=== PATIENT | male | born 1970 | race Caucasian/White ===

== ENCOUNTER → 2017-08-04 | Outpatient (CLI) | payer OTHER ==
[2017-07-23 11:00] VITALS: BP 129/76
[~2017-08-04] MED LIST: ALPR0.254 PO; AMOX1TAB61 PO; ATOR40TA59 PO; BUDE10.2 IH; CETI10TA22 PO; DOXY100T PO; ENOX40DI SQ; ENOX60DI3 SQ; FLUT9.9S NS; FURO-68 PO; HYDR-2762 PO; LISI10TA2 PO; MELA3TAB2 PO; METF500T9 PO; METO200T5 PO; MONT10TA9 PO; OLOP2.5D EACHEYE; PROAIR HFA8.5 GM INH; SENN-22 PO; TIZA4TAB PO
== END | disposition home or self-care (01) ==
LOC: PMGWOUND 11:22
PROVIDERS: ATTEND Emergency Medicine Undersea and Hyperbaric Medicine
DX: T81.31XA Disruption of external operation (surgical) wound, not elsewhere classified, initial encounter (principal); E78.00 Pure hypercholesterolemia, unspecified; E11.22 Type 2 diabetes mellitus with diabetic chronic kidney disease; I12.9 Hypertensive chronic kidney disease with stage 1 through stage 4 chronic kidney disease, or unspecified chronic kidney disease; N18.2 Chronic kidney disease, stage 2 (mild); E66.01 Morbid (severe) obesity due to excess calories; Z68.45 Body mass index [BMI] 70 or greater, adult; Z72.89 Other problems related to lifestyle; Y83.8 Other surgical procedures as the cause of abnormal reaction of the patient, or of later complication, without mention of misadventure at the time of the procedure
CPT/HCPCS: 99215

== ENCOUNTER → 2017-08-11 | Outpatient (CLI) | payer OTHER ==
[2017-07-23 11:00] VITALS: BP 129/76
== END | disposition home or self-care (01) ==
LOC: PMGWOUND 13:26
PROVIDERS: ATTEND Emergency Medicine Undersea and Hyperbaric Medicine
DX: T81.31XA Disruption of external operation (surgical) wound, not elsewhere classified, initial encounter (principal); E78.00 Pure hypercholesterolemia, unspecified; E66.01 Morbid (severe) obesity due to excess calories; Z72.89 Other problems related to lifestyle; Z68.45 Body mass index [BMI] 70 or greater, adult; E11.22 Type 2 diabetes mellitus with diabetic chronic kidney disease; I12.9 Hypertensive chronic kidney disease with stage 1 through stage 4 chronic kidney disease, or unspecified chronic kidney disease; N18.2 Chronic kidney disease, stage 2 (mild); Y83.8 Other surgical procedures as the cause of abnormal reaction of the patient, or of later complication, without mention of misadventure at the time of the procedure
CPT/HCPCS: 99214

== ENCOUNTER → 2017-08-18 | Outpatient (CLI) | payer OTHER ==
[2017-07-23 11:00] VITALS: BP 129/76
== END | disposition home or self-care (01) ==
LOC: PMGWOUND 13:14
PROVIDERS: ATTEND Emergency Medicine Undersea and Hyperbaric Medicine
DX: T81.31XD Disruption of external operation (surgical) wound, not elsewhere classified, subsequent encounter (principal); E78.00 Pure hypercholesterolemia, unspecified; E66.01 Morbid (severe) obesity due to excess calories; E11.22 Type 2 diabetes mellitus with diabetic chronic kidney disease; I12.9 Hypertensive chronic kidney disease with stage 1 through stage 4 chronic kidney disease, or unspecified chronic kidney disease; N18.2 Chronic kidney disease, stage 2 (mild); Z72.89 Other problems related to lifestyle; Y83.8 Other surgical procedures as the cause of abnormal reaction of the patient, or of later complication, without mention of misadventure at the time of the procedure
CPT/HCPCS: 99214

== ENCOUNTER → 2017-09-08 | Outpatient (CLI) | payer OTHER ==
[2017-07-23 11:00] VITALS: BP 129/76
== END | disposition home or self-care (01) ==
LOC: PMGWOUND 11:01
PROVIDERS: ATTEND Emergency Medicine Undersea and Hyperbaric Medicine
DX: T81.31XD Disruption of external operation (surgical) wound, not elsewhere classified, subsequent encounter (principal); E78.00 Pure hypercholesterolemia, unspecified; E66.01 Morbid (severe) obesity due to excess calories; Z68.45 Body mass index [BMI] 70 or greater, adult; E11.22 Type 2 diabetes mellitus with diabetic chronic kidney disease; I12.9 Hypertensive chronic kidney disease with stage 1 through stage 4 chronic kidney disease, or unspecified chronic kidney disease; N18.2 Chronic kidney disease, stage 2 (mild); E78.5 Hyperlipidemia, unspecified; Z72.89 Other problems related to lifestyle; Y83.8 Other surgical procedures as the cause of abnormal reaction of the patient, or of later complication, without mention of misadventure at the time of the procedure
CPT/HCPCS: 99214

== ENCOUNTER → 2017-09-22 | Outpatient (CLI) | payer OTHER ==
[2017-07-23 11:00] VITALS: BP 129/76
== END | disposition home or self-care (01) ==
LOC: PMGWOUND 11:00
PROVIDERS: ATTEND Emergency Medicine Undersea and Hyperbaric Medicine
DX: S81.011D Laceration without foreign body, right knee, subsequent encounter (principal); E78.5 Hyperlipidemia, unspecified; E66.01 Morbid (severe) obesity due to excess calories; I12.9 Hypertensive chronic kidney disease with stage 1 through stage 4 chronic kidney disease, or unspecified chronic kidney disease; E11.22 Type 2 diabetes mellitus with diabetic chronic kidney disease; N18.2 Chronic kidney disease, stage 2 (mild); Z72.89 Other problems related to lifestyle; Z68.45 Body mass index [BMI] 70 or greater, adult; X58.XXXD Exposure to other specified factors, subsequent encounter
CPT/HCPCS: 99213; 99214

== ENCOUNTER → 2017-10-06 | Outpatient (CLI) | payer OTHER ==
[2017-07-23 11:00] VITALS: BP 129/76
== END | disposition home or self-care (01) ==
LOC: PMGWOUND 10:59
PROVIDERS: ATTEND Emergency Medicine Undersea and Hyperbaric Medicine
DX: S81.011D Laceration without foreign body, right knee, subsequent encounter (principal); E66.01 Morbid (severe) obesity due to excess calories; E78.00 Pure hypercholesterolemia, unspecified; E11.22 Type 2 diabetes mellitus with diabetic chronic kidney disease; I12.9 Hypertensive chronic kidney disease with stage 1 through stage 4 chronic kidney disease, or unspecified chronic kidney disease; N18.2 Chronic kidney disease, stage 2 (mild); Z68.45 Body mass index [BMI] 70 or greater, adult; Z72.89 Other problems related to lifestyle; W19.XXXD Unspecified fall, subsequent encounter
CPT/HCPCS: 99214

== ENCOUNTER → 2017-10-13 | Outpatient (CLI) | payer OTHER ==
[2017-07-23 11:00] VITALS: BP 129/76
== END | disposition home or self-care (01) ==
LOC: PMGWOUND 10:58
PROVIDERS: ATTEND Emergency Medicine Undersea and Hyperbaric Medicine
DX: T81.31XD Disruption of external operation (surgical) wound, not elsewhere classified, subsequent encounter (principal); E11.622 Type 2 diabetes mellitus with other skin ulcer; L97.811 Non-pressure chronic ulcer of other part of right lower leg limited to breakdown of skin; E66.01 Morbid (severe) obesity due to excess calories; E78.00 Pure hypercholesterolemia, unspecified; E11.22 Type 2 diabetes mellitus with diabetic chronic kidney disease; I12.9 Hypertensive chronic kidney disease with stage 1 through stage 4 chronic kidney disease, or unspecified chronic kidney disease; N18.2 Chronic kidney disease, stage 2 (mild); Z68.45 Body mass index [BMI] 70 or greater, adult; Z72.89 Other problems related to lifestyle; Y83.8 Other surgical procedures as the cause of abnormal reaction of the patient, or of later complication, without mention of misadventure at the time of the procedure
CPT/HCPCS: 97605

== ENCOUNTER → 2017-10-21 | Outpatient (CLI) | payer OTHER ==
[2017-07-23 11:00] VITALS: BP 129/76
== END | disposition home or self-care (01) ==
LOC: PMGWOUND 11:15
PROVIDERS: ATTEND Emergency Medicine Undersea and Hyperbaric Medicine
DX: T81.31XD Disruption of external operation (surgical) wound, not elsewhere classified, subsequent encounter (principal); E11.622 Type 2 diabetes mellitus with other skin ulcer; L97.811 Non-pressure chronic ulcer of other part of right lower leg limited to breakdown of skin; E11.22 Type 2 diabetes mellitus with diabetic chronic kidney disease; I12.9 Hypertensive chronic kidney disease with stage 1 through stage 4 chronic kidney disease, or unspecified chronic kidney disease; N18.2 Chronic kidney disease, stage 2 (mild); Z68.45 Body mass index [BMI] 70 or greater, adult; E78.00 Pure hypercholesterolemia, unspecified; E66.01 Morbid (severe) obesity due to excess calories; G47.30 Sleep apnea, unspecified; Z72.89 Other problems related to lifestyle; Y83.8 Other surgical procedures as the cause of abnormal reaction of the patient, or of later complication, without mention of misadventure at the time of the procedure
CPT/HCPCS: 97605

== ENCOUNTER → 2017-10-28 | Outpatient (CLI) | payer OTHER | END | disposition home or self-care (01) | LOC: PMGWOUND 12:40 | DX: T81.31XD Disruption of external operation (surgical) wound, not elsewhere classified, subsequent encounter (principal); E11.622 Type 2 diabetes mellitus with other skin ulcer; L97.811 Non-pressure chronic ulcer of other part of right lower leg limited to breakdown of skin; E78.00 Pure hypercholesterolemia, unspecified; E66.01 Morbid (severe) obesity due to excess calories; Z68.45 Body mass index [BMI] 70 or greater, adult; Z72.89 Other problems related to lifestyle; E11.22 Type 2 diabetes mellitus with diabetic chronic kidney disease; I12.9 Hypertensive chronic kidney disease with stage 1 through stage 4 chronic kidney disease, or unspecified chronic kidney disease; N18.2 Chronic kidney disease, stage 2 (mild); E78.5 Hyperlipidemia, unspecified; Y83.8 Other surgical procedures as the cause of abnormal reaction of the patient, or of later complication, without mention of misadventure at the time of the procedure | CPT/HCPCS: 97605 ==

== ENCOUNTER → 2017-11-04 | Outpatient (CLI) | payer OTHER | END | disposition home or self-care (01) | LOC: PMGWOUND 12:34 | DX: T81.31XD Disruption of external operation (surgical) wound, not elsewhere classified, subsequent encounter (principal); E11.622 Type 2 diabetes mellitus with other skin ulcer; L97.811 Non-pressure chronic ulcer of other part of right lower leg limited to breakdown of skin; E78.00 Pure hypercholesterolemia, unspecified; E66.01 Morbid (severe) obesity due to excess calories; E11.22 Type 2 diabetes mellitus with diabetic chronic kidney disease; I12.9 Hypertensive chronic kidney disease with stage 1 through stage 4 chronic kidney disease, or unspecified chronic kidney disease; N18.2 Chronic kidney disease, stage 2 (mild); E78.5 Hyperlipidemia, unspecified; G47.30 Sleep apnea, unspecified; Z68.45 Body mass index [BMI] 70 or greater, adult; Z72.89 Other problems related to lifestyle; Y83.8 Other surgical procedures as the cause of abnormal reaction of the patient, or of later complication, without mention of misadventure at the time of the procedure | CPT/HCPCS: 87205; 99214 ==

== ENCOUNTER → 2017-11-07 | Outpatient (CLI) | payer OTHER | END | disposition home or self-care (01) | LOC: PMGWOUND 08:33 | DX: T81.31XD Disruption of external operation (surgical) wound, not elsewhere classified, subsequent encounter (principal); E11.622 Type 2 diabetes mellitus with other skin ulcer; L97.811 Non-pressure chronic ulcer of other part of right lower leg limited to breakdown of skin; E78.00 Pure hypercholesterolemia, unspecified; E66.01 Morbid (severe) obesity due to excess calories; E11.22 Type 2 diabetes mellitus with diabetic chronic kidney disease; I12.9 Hypertensive chronic kidney disease with stage 1 through stage 4 chronic kidney disease, or unspecified chronic kidney disease; N18.2 Chronic kidney disease, stage 2 (mild); E78.5 Hyperlipidemia, unspecified; G47.30 Sleep apnea, unspecified; Z68.45 Body mass index [BMI] 70 or greater, adult; Z72.89 Other problems related to lifestyle; Y83.8 Other surgical procedures as the cause of abnormal reaction of the patient, or of later complication, without mention of misadventure at the time of the procedure | CPT/HCPCS: 99214 ==

== ENCOUNTER 2017-11-10 16:46 | Inpatient (IN) | payer OTHER ==
[2017-11-10] MEDS ORDERED: ONDANSETRON PF 4 MG/2 ML VIAL. IV (18:30)
[2017-11-10] MEDS ORDERED: PIP/TAZO PER PHARMACY MC (18:30)
[2017-11-10 18:50] LABS: ADD MAN DIFF? NO
[2017-11-10 18:55] LABS: BASO # 0.1 x10^3/uL (0.0-0.2); BASO % 1 % (0-3); EOS # 0.7 x10^3/uL (0.0-0.7); EOS % 9 % (0-3); HEMATOCRIT 41.4 % (39.0-53.0); HEMOGLOBIN 13.7 g/dL (13.0-17.5); LYMPH # 1.5 x10^3/uL (1.0-4.8); LYMPH % 17 % (24-48); MEAN CORPUSCULAR HEMOGLOBIN 28 pg (25-35); MEAN CORPUSCULAR HGB CONC 33 g/dL (31-37); MEAN CORPUSCULAR VOLUME 86 fL (79-100); MONO # 0.6 x10^3/uL (0.0-1.1); MONO % 7 % (0-9); NEUT # 5.8 x10^3uL (1.8-7.7); NEUT % 66 % (31-73); PLATELET COUNT 265 x10^3/uL (140-400); RED BLOOD COUNT 4.84 x10^6/uL (4.30-5.70); RED CELL DISTRIBUTION WIDTH 15.2 % (11.5-14.5); WHITE BLOOD COUNT 8.7 x10^3/uL (4.0-11.0)
[2017-11-10 19:03] LABS: ANION GAP 8 (6-14); BLOOD UREA NITROGEN 16 mg/dL (8-26); CALCIUM 8.2 mg/dL (8.5-10.1); CARBON DIOXIDE 29 mmol/L (21-32); CHLORIDE 104 mmol/L (98-107); GFR 80.8; GLUCOSE 113 mg/dL (70-99); SODIUM 141 mmol/L (136-145)
[2017-11-10 19:06] LABS: C-REACTIVE PROTEIN 26.6 mg/L (0-3.3)
[2017-11-10] MEDS: PIPERACILLIN/TAZO IV Push 3.375 GM VIAL. IVP (19:33)
[2017-11-10] MEDS: IV NORMAL SALINE 500ML BAG 500 ML IV (19:34)
[2017-11-10] MEDS: VANCOMYCIN 2 GM in IV DEXTROSE 5 %-0.2 % NACL 500 ML IV (19:34)
[2017-11-10 20:02] LABS: SEDIMENTATION RATE 36 (0-15)
[2017-11-11] MEDS: IV NORMAL SALINE 1000ML BAG 1,000 ML IV (00:36)
[2017-11-11] MEDS: VANCOMYCIN 2 GM in IV DEXTROSE 5 %-0.2 % NACL 500 ML IV ×3 (00:37→18:39)
[2017-11-11] MEDS: PIPERACILLIN/TAZO IV Push 3.375 GM VIAL. IVP ×5 (00:37→23:15)
[2017-11-11] MEDS: MORPHINE SULFATE 2 MG/ML DISP.SYRIN. IV (01:41)
[2017-11-11] MEDS: VANCOMYCIN PER PHARMACY MC ×2 (02:07→09:11)
[2017-11-11 05:37] LABS: ADD MAN DIFF? NO
[2017-11-11 05:58] LABS: ANION GAP 11 (6-14); BLOOD UREA NITROGEN 13 mg/dL (8-26); CALCIUM 8.1 mg/dL (8.5-10.1); CARBON DIOXIDE 27 mmol/L (21-32); CHLORIDE 104 mmol/L (98-107); GFR 80.8; GLUCOSE 98 mg/dL (70-99); SODIUM 142 mmol/L (136-145)
[2017-11-11 06:06] LABS: BASO # 0.1 x10^3/uL (0.0-0.2); BASO % 1 % (0-3); EOS # 0.7 x10^3/uL (0.0-0.7); EOS % 9 % (0-3); HEMATOCRIT 41.8 % (39.0-53.0); HEMOGLOBIN 13.3 g/dL (13.0-17.5); LYMPH # 1.7 x10^3/uL (1.0-4.8); LYMPH % 22 % (24-48); MEAN CORPUSCULAR HEMOGLOBIN 27 pg (25-35); MEAN CORPUSCULAR HGB CONC 32 g/dL (31-37); MEAN CORPUSCULAR VOLUME 85 fL (79-100); MONO # 0.7 x10^3/uL (0.0-1.1); MONO % 9 % (0-9); NEUT # 4.7 x10^3uL (1.8-7.7); NEUT % 60 % (31-73); PLATELET COUNT 265 x10^3/uL (140-400); RED BLOOD COUNT 4.91 x10^6/uL (4.30-5.70); RED CELL DISTRIBUTION WIDTH 15.3 % (11.5-14.5); WHITE BLOOD COUNT 7.9 x10^3/uL (4.0-11.0)
[2017-11-11] MEDS ORDERED: ONDANSETRON PF 4 MG/2 ML VIAL. IV (08:15)
[2017-11-11] MEDS ORDERED: ALBUTEROL SULFATE 2.5 MG/3 ML NEBU. NEB (08:15)
[2017-11-11] MEDS ORDERED: MORPHINE SULFATE 2 MG/ML DISP.SYRIN. IV (08:15)
[2017-11-11] MEDS: SENNOSIDES/DOCUSATE 8.6/50MG TABLET. PO (09:00)
[2017-11-11] MEDS: IPRATRPIUM/ALBUTEROL 0.5/2.5MG 3 ML NEBU. NEB ×4 (09:00→19:43)
[2017-11-11] MEDS: tiZANidine 4 MG TABLET. PO ×2 (09:08→23:19)
[2017-11-11] MEDS: FUROSEMIDE 40 MG TABLET. PO (09:08)
[2017-11-11] MEDS: FAMOTIDINE 20 MG TABLET. PO ×2 (09:08→21:26)
[2017-11-11] MEDS: METOPROLOL SUCC 24HR ER 100 MG TAB.ER.24H. PO (09:08)
[2017-11-11] MEDS: LISINOPRIL 10 MG TABLET PO (09:09)
[2017-11-11] MEDS: LACTOBACILLUS RHAMNOSUS GG 1 CAPSULE. PO ×2 (09:09→21:26)
[2017-11-11] MEDS: FLUTICASONE 50MCG/NASAL SPRAY 16GM BOTTLE. NS (09:09)
[2017-11-11] MEDS: FLUCONAZOLE 100 MG TABLET. PO (15:10)
[2017-11-11] MEDS: metFORMIN XR 500 MG TAB.ER.24H PO (18:38)
[2017-11-11] MEDS: BUDESONIDE 0.5 MG/2 ML NEBU. NEB (19:43)
[2017-11-11] MEDS: MONTELUKAST SODIUM 10 MG TABLET. PO (21:26)
[2017-11-11] MEDS: ATORVASTATIN CALCIUM 40 MG TABLET. PO (21:26)
[2017-11-11] MEDS: CETIRIZINE HCL 10 MG TABLET. PO (21:26)
[2017-11-11] MEDS ORDERED: 0.9 % SODIUM CHLORIDE 10 ML DISP.SYRIN. IV ×2 (22:00)
[2017-11-11] MEDS: HYDROcodone/APAP 7.5/325MG 1 TAB TABLET PO (23:19)
[2017-11-12] MEDS: PIPERACILLIN/TAZO IV Push 3.375 GM VIAL. IVP ×3 (05:42→18:32)
[2017-11-12] MEDS: VANCOMYCIN 2 GM in IV DEXTROSE 5 %-0.2 % NACL 500 ML IV ×2 (05:42→21:07)
[2017-11-12] MEDS: FUROSEMIDE 40 MG TABLET. PO (09:00)
[2017-11-12] MEDS: SENNOSIDES/DOCUSATE 8.6/50MG TABLET. PO (09:00)
[2017-11-12] MEDS: METOPROLOL SUCC 24HR ER 100 MG TAB.ER.24H. PO (09:00)
[2017-11-12] MEDS: FLUTICASONE 50MCG/NASAL SPRAY 16GM BOTTLE. NS (09:00)
[2017-11-12] MEDS: BUDESONIDE 0.5 MG/2 ML NEBU. NEB ×2 (09:30→18:40)
[2017-11-12] MEDS: IPRATRPIUM/ALBUTEROL 0.5/2.5MG 3 ML NEBU. NEB ×4 (09:30→18:40)
[2017-11-12] MEDS: FAMOTIDINE 20 MG TABLET. PO ×2 (10:30→21:06)
[2017-11-12] MEDS: FLUCONAZOLE 100 MG TABLET. PO (10:30)
[2017-11-12] MEDS: LISINOPRIL 10 MG TABLET PO (10:31)
[2017-11-12] MEDS: LACTOBACILLUS RHAMNOSUS GG 1 CAPSULE. PO ×2 (10:31→21:06)
[2017-11-12] MEDS: INSULIN ASPART 300 UNITS/3 ML INSULN.PEN SQ ×2 (11:30→16:30)
[2017-11-12 11:42] LABS: POC GLUCOSE 100 mg/dL (70-99)
[2017-11-12 16:28] LABS: POC GLUCOSE 107 mg/dL (70-99)
[2017-11-12] MEDS: metFORMIN XR 500 MG TAB.ER.24H PO (18:30)
[2017-11-12] MEDS: VANCOMYCIN PER PHARMACY MC ×2 (19:44→21:21)
[2017-11-12 20:09] LABS: VANC TR 13.2 mcg/mL (10.0-20.0)
[2017-11-12] MEDS: MONTELUKAST SODIUM 10 MG TABLET. PO (21:07)
[2017-11-12] MEDS: ATORVASTATIN CALCIUM 40 MG TABLET. PO (21:07)
[2017-11-12] MEDS: CETIRIZINE HCL 10 MG TABLET. PO (21:07)
[2017-11-12] MEDS: HYDROcodone/APAP 7.5/325MG 1 TAB TABLET PO (21:16)
[2017-11-13] MEDS: PIPERACILLIN/TAZO IV Push 3.375 GM VIAL. IVP ×3 (00:54→11:50)
[2017-11-13] MEDS: VANCOMYCIN 2 GM in IV DEXTROSE 5 %-0.2 % NACL 500 ML IV ×2 (06:11→19:42)
[2017-11-13] MEDS: INSULIN ASPART 300 UNITS/3 ML INSULN.PEN SQ ×3 (07:30→16:30)
[2017-11-13 08:00] LABS: ANION GAP 7 (6-14); BLOOD UREA NITROGEN 10 mg/dL (8-26); CALCIUM 8.4 mg/dL (8.5-10.1); CARBON DIOXIDE 30 mmol/L (21-32); CHLORIDE 105 mmol/L (98-107); GFR 80.8; GLUCOSE 102 mg/dL (70-99); POTASSIUM 3.9 mmol/L (3.5-5.1); SODIUM 142 mmol/L (136-145)
[2017-11-13 08:20] LABS: POC GLUCOSE 100 mg/dL (70-99)
[2017-11-13] MEDS: IPRATRPIUM/ALBUTEROL 0.5/2.5MG 3 ML NEBU. NEB ×4 (08:22→19:50)
[2017-11-13] MEDS: BUDESONIDE 0.5 MG/2 ML NEBU. NEB ×2 (08:22→19:50)
[2017-11-13] MEDS: SENNOSIDES/DOCUSATE 8.6/50MG TABLET. PO (09:00)
[2017-11-13] MEDS: FAMOTIDINE 20 MG TABLET. PO ×2 (09:32→20:51)
[2017-11-13] MEDS: METOPROLOL SUCC 24HR ER 100 MG TAB.ER.24H. PO (09:33)
[2017-11-13] MEDS: FUROSEMIDE 40 MG TABLET. PO (09:33)
[2017-11-13] MEDS: LACTOBACILLUS RHAMNOSUS GG 1 CAPSULE. PO ×2 (09:33→20:51)
[2017-11-13] MEDS: LISINOPRIL 10 MG TABLET PO (09:33)
[2017-11-13] MEDS: FLUTICASONE 50MCG/NASAL SPRAY 16GM BOTTLE. NS (09:34)
[2017-11-13] MEDS: FLUCONAZOLE 100 MG TABLET. PO (09:34)
[2017-11-13] MEDS: metFORMIN XR 500 MG TAB.ER.24H PO (09:34)
[2017-11-13 11:20] LABS: POC GLUCOSE 105 mg/dL (70-99)
[2017-11-13] MEDS ORDERED: IPRATRPIUM/ALBUTEROL 0.5/2.5MG 3 ML NEBU. NEB (12:00)
[2017-11-13] MEDS: VANCOMYCIN PER PHARMACY MC (15:59)
[2017-11-13 16:58] LABS: POC GLUCOSE 97 mg/dL (70-99)
[2017-11-13] MEDS: ACETAMINOPHEN 325 MG TABLET. PO (17:31)
[2017-11-13] MEDS: PIPERACILLIN/TAZOBACTAM 3.375 GM in IV NORMAL SALINE 50ML 50 ML IV (18:38)
[2017-11-13] MEDS: MONTELUKAST SODIUM 10 MG TABLET. PO (20:51)
[2017-11-13] MEDS: CETIRIZINE HCL 10 MG TABLET. PO (20:51)
[2017-11-13] MEDS: ATORVASTATIN CALCIUM 40 MG TABLET. PO (20:51)
[2017-11-14] MEDS: PIPERACILLIN/TAZOBACTAM 3.375 GM in IV NORMAL SALINE 50ML 50 ML IV ×2 (00:21→05:37)
[2017-11-14] MEDS: VANCOMYCIN 2 GM in IV DEXTROSE 5 %-0.2 % NACL 500 ML IV (06:42)
[2017-11-14 07:22] LABS: POC GLUCOSE 108 mg/dL (70-99)
[2017-11-14] MEDS: INSULIN ASPART 300 UNITS/3 ML INSULN.PEN SQ ×3 (07:30→16:30)
[2017-11-14] MEDS: BUDESONIDE 0.5 MG/2 ML NEBU. NEB (07:41)
[2017-11-14] MEDS: IPRATRPIUM/ALBUTEROL 0.5/2.5MG 3 ML NEBU. NEB ×3 (07:41→15:10)
[2017-11-14] MEDS: SENNOSIDES/DOCUSATE 8.6/50MG TABLET. PO (09:00)
[2017-11-14] MEDS: LACTOBACILLUS RHAMNOSUS GG 1 CAPSULE. PO (09:18)
[2017-11-14] MEDS: FAMOTIDINE 20 MG TABLET. PO (09:19)
[2017-11-14] MEDS: FLUCONAZOLE 100 MG TABLET. PO (09:19)
[2017-11-14] MEDS: metFORMIN XR 500 MG TAB.ER.24H PO (09:20)
[2017-11-14] MEDS: LISINOPRIL 10 MG TABLET PO (09:20)
[2017-11-14] MEDS: FLUTICASONE 50MCG/NASAL SPRAY 16GM BOTTLE. NS (09:21)
[2017-11-14] MEDS: METOPROLOL SUCC 24HR ER 100 MG TAB.ER.24H. PO (09:21)
[2017-11-14] MEDS: FUROSEMIDE 40 MG TABLET. PO (09:22)
[2017-11-14 11:02] LABS: POC GLUCOSE 113 mg/dL (70-99)
[2017-11-14] MEDS: ERTAPENEM 1GM IVPB FOR OMNI 50 ML IV (12:11)
[2017-11-14] MEDS ORDERED: DOXYCYCLINE HYCLATE 100 MG TABLET PO (21:00)
== END 2017-11-14 17:00 | disposition home health service (06) | DRG 603 ==
LOC: 5 SOUTH 11-11 02:00 → ER 16:46 → ED HOLD 18:43
PROC: 5A09357 Assistance with Respiratory Ventilation, Less than 24 Consecutive Hours, Continuous Positive Airway Pressure (ICD-10-PCS; 2017-11-11)
PROC: 5A09357 Assistance with Respiratory Ventilation, Less than 24 Consecutive Hours, Continuous Positive Airway Pressure (ICD-10-PCS; 2017-11-11)
PROC: 02HV33Z Insertion of Infusion Device into Superior Vena Cava, Percutaneous Approach (ICD-10-PCS; principal; 2017-11-12)
DX: L03.115 Cellulitis of right lower limb (principal); E11.22 Type 2 diabetes mellitus with diabetic chronic kidney disease; E44.0 Moderate protein-calorie malnutrition; E11.65 Type 2 diabetes mellitus with hyperglycemia; Z68.45 Body mass index [BMI] 70 or greater, adult; E66.01 Morbid (severe) obesity due to excess calories; B35.9 Dermatophytosis, unspecified; E78.5 Hyperlipidemia, unspecified; G47.33 Obstructive sleep apnea (adult) (pediatric); G89.29 Other chronic pain; I12.9 Hypertensive chronic kidney disease with stage 1 through stage 4 chronic kidney disease, or unspecified chronic kidney disease; I87.8 Other specified disorders of veins; J20.9 Acute bronchitis, unspecified; J30.9 Allergic rhinitis, unspecified; M79.3 Panniculitis, unspecified; N18.2 Chronic kidney disease, stage 2 (mild); Z82.49 Family history of ischemic heart disease and other diseases of the circulatory system; Z83.3 Family history of diabetes mellitus; Z91.19 Patient's noncompliance with other medical treatment and regimen; Z91.02 Food additives allergy status
CPT/HCPCS: 36415; 36569; 71045; 73562; 80048; 80202; 82962; 85025; 85651; 86140; 87205; 94640; 94660; 94760; 96361; 96365; 96366; 96375; 99285; 99285-25; J1335; J1815; J2270; J2543; J3370; J7030; J7040; J7620; J7626

== ENCOUNTER → 2017-11-10 | Outpatient (CLI) | payer OTHER | END | disposition home or self-care (01) | LOC: PMGWOUND 13:34 | DX: T81.31XD Disruption of external operation (surgical) wound, not elsewhere classified, subsequent encounter (principal); E11.622 Type 2 diabetes mellitus with other skin ulcer; L97.811 Non-pressure chronic ulcer of other part of right lower leg limited to breakdown of skin; E78.00 Pure hypercholesterolemia, unspecified; E66.01 Morbid (severe) obesity due to excess calories; E11.22 Type 2 diabetes mellitus with diabetic chronic kidney disease; I12.9 Hypertensive chronic kidney disease with stage 1 through stage 4 chronic kidney disease, or unspecified chronic kidney disease; E78.5 Hyperlipidemia, unspecified; G47.30 Sleep apnea, unspecified; Z68.45 Body mass index [BMI] 70 or greater, adult; Z72.89 Other problems related to lifestyle; Y83.8 Other surgical procedures as the cause of abnormal reaction of the patient, or of later complication, without mention of misadventure at the time of the procedure | CPT/HCPCS: 99214 ==

== ENCOUNTER → 2017-11-17 | Outpatient (CLI) | payer OTHER | END | disposition home or self-care (01) | LOC: PMGWOUND 12:40 | DX: T81.31XD Disruption of external operation (surgical) wound, not elsewhere classified, subsequent encounter (principal); E11.622 Type 2 diabetes mellitus with other skin ulcer; L97.811 Non-pressure chronic ulcer of other part of right lower leg limited to breakdown of skin; E78.00 Pure hypercholesterolemia, unspecified; E66.01 Morbid (severe) obesity due to excess calories; E11.22 Type 2 diabetes mellitus with diabetic chronic kidney disease; I12.9 Hypertensive chronic kidney disease with stage 1 through stage 4 chronic kidney disease, or unspecified chronic kidney disease; N18.2 Chronic kidney disease, stage 2 (mild); G89.29 Other chronic pain; E11.65 Type 2 diabetes mellitus with hyperglycemia; G47.33 Obstructive sleep apnea (adult) (pediatric); E78.5 Hyperlipidemia, unspecified; Z68.45 Body mass index [BMI] 70 or greater, adult; Z72.89 Other problems related to lifestyle; Y83.8 Other surgical procedures as the cause of abnormal reaction of the patient, or of later complication, without mention of misadventure at the time of the procedure | CPT/HCPCS: 99214 ==

== ENCOUNTER → 2017-12-02 | Outpatient (CLI) | payer OTHER | END | disposition home or self-care (01) | LOC: PMGWOUND 13:44 | DX: T81.31XD Disruption of external operation (surgical) wound, not elsewhere classified, subsequent encounter (principal); E11.622 Type 2 diabetes mellitus with other skin ulcer; L97.811 Non-pressure chronic ulcer of other part of right lower leg limited to breakdown of skin; E78.00 Pure hypercholesterolemia, unspecified; E66.01 Morbid (severe) obesity due to excess calories; E11.22 Type 2 diabetes mellitus with diabetic chronic kidney disease; I12.9 Hypertensive chronic kidney disease with stage 1 through stage 4 chronic kidney disease, or unspecified chronic kidney disease; N18.2 Chronic kidney disease, stage 2 (mild); G89.29 Other chronic pain; E11.65 Type 2 diabetes mellitus with hyperglycemia; G47.33 Obstructive sleep apnea (adult) (pediatric); E78.5 Hyperlipidemia, unspecified; Z68.45 Body mass index [BMI] 70 or greater, adult; Z72.89 Other problems related to lifestyle; Y83.8 Other surgical procedures as the cause of abnormal reaction of the patient, or of later complication, without mention of misadventure at the time of the procedure | CPT/HCPCS: 99214 ==

== ENCOUNTER → 2017-12-15 | Outpatient (CLI) | payer OTHER | END | disposition home or self-care (01) | LOC: PMGWOUND 13:42 | DX: T81.31XD Disruption of external operation (surgical) wound, not elsewhere classified, subsequent encounter (principal); E11.622 Type 2 diabetes mellitus with other skin ulcer; L97.811 Non-pressure chronic ulcer of other part of right lower leg limited to breakdown of skin; E78.00 Pure hypercholesterolemia, unspecified; E66.01 Morbid (severe) obesity due to excess calories; E11.22 Type 2 diabetes mellitus with diabetic chronic kidney disease; I12.9 Hypertensive chronic kidney disease with stage 1 through stage 4 chronic kidney disease, or unspecified chronic kidney disease; N18.2 Chronic kidney disease, stage 2 (mild); G89.29 Other chronic pain; E11.65 Type 2 diabetes mellitus with hyperglycemia; G47.33 Obstructive sleep apnea (adult) (pediatric); E78.5 Hyperlipidemia, unspecified; Z68.45 Body mass index [BMI] 70 or greater, adult; Z72.89 Other problems related to lifestyle; Y83.8 Other surgical procedures as the cause of abnormal reaction of the patient, or of later complication, without mention of misadventure at the time of the procedure | CPT/HCPCS: 99213; 99214 ==

== ENCOUNTER → 2018-01-05 | Outpatient (CLI) | payer OTHER | END | disposition home or self-care (01) | LOC: PMGWOUND 13:38 | DX: T81.31XD Disruption of external operation (surgical) wound, not elsewhere classified, subsequent encounter (principal); E11.622 Type 2 diabetes mellitus with other skin ulcer; L97.811 Non-pressure chronic ulcer of other part of right lower leg limited to breakdown of skin; E11.621 Type 2 diabetes mellitus with foot ulcer; L97.512 Non-pressure chronic ulcer of other part of right foot with fat layer exposed; E78.00 Pure hypercholesterolemia, unspecified; E66.01 Morbid (severe) obesity due to excess calories; E11.22 Type 2 diabetes mellitus with diabetic chronic kidney disease; I12.9 Hypertensive chronic kidney disease with stage 1 through stage 4 chronic kidney disease, or unspecified chronic kidney disease; N18.2 Chronic kidney disease, stage 2 (mild); G89.29 Other chronic pain; E11.65 Type 2 diabetes mellitus with hyperglycemia; G47.33 Obstructive sleep apnea (adult) (pediatric); E78.5 Hyperlipidemia, unspecified; Z68.45 Body mass index [BMI] 70 or greater, adult; Z72.89 Other problems related to lifestyle; Y83.8 Other surgical procedures as the cause of abnormal reaction of the patient, or of later complication, without mention of misadventure at the time of the procedure | CPT/HCPCS: 99214 ==

== ENCOUNTER → 2018-01-19 | Outpatient (CLI) | payer OTHER | END | disposition home or self-care (01) | LOC: PMGWOUND 11:04 | DX: T81.31XD Disruption of external operation (surgical) wound, not elsewhere classified, subsequent encounter (principal); E11.622 Type 2 diabetes mellitus with other skin ulcer; L97.811 Non-pressure chronic ulcer of other part of right lower leg limited to breakdown of skin; E11.621 Type 2 diabetes mellitus with foot ulcer; L97.512 Non-pressure chronic ulcer of other part of right foot with fat layer exposed; E78.00 Pure hypercholesterolemia, unspecified; E66.01 Morbid (severe) obesity due to excess calories; E11.22 Type 2 diabetes mellitus with diabetic chronic kidney disease; I12.9 Hypertensive chronic kidney disease with stage 1 through stage 4 chronic kidney disease, or unspecified chronic kidney disease; N18.2 Chronic kidney disease, stage 2 (mild); G89.29 Other chronic pain; E11.65 Type 2 diabetes mellitus with hyperglycemia; G47.33 Obstructive sleep apnea (adult) (pediatric); E78.5 Hyperlipidemia, unspecified; Z68.45 Body mass index [BMI] 70 or greater, adult; Y83.8 Other surgical procedures as the cause of abnormal reaction of the patient, or of later complication, without mention of misadventure at the time of the procedure | CPT/HCPCS: 99214 ==

== ENCOUNTER → 2018-02-03 | Day surgery (SDC) | payer OTHER ==
[~2018-02-03] MED LIST changes: -ALPR0.254 PO; -AMOX1TAB61 PO; -ATOR40TA59 PO; -BUDE10.2 IH; -CETI10TA22 PO; +DESFLURANE 31 TO 60 MINUTES IH; +DEXAMETHASONE SOD PHOS 20 MG/5 ML VIAL.; -DOXY100T PO; -ENOX40DI SQ; -ENOX60DI3 SQ; +ESMOLOL 100 MG/10 ML VIAL. IV; +FAMOTIDINE 20 MG/2 ML VIAL; -FLUT9.9S NS; -FURO-68 PO; +GLYCOPYRROLATE 1 MG/5 ML VIAL.; -HYDR-2762 PO; +HYDROcodone/APAP 10/325 1 TAB TABLET PO; +IPRATRPIUM/ALBUTEROL 0.5/2.5MG 3 ML NEBU.; +IV RINGERS,LACTATED 1000ML 1,000 ML IV; +KETAMINE HCL 500 MG/10 ML VIAL.; +LIDOCAINE 1% PF 2 ML VIAL. ID; +LIDOCAINE 1% PF 5 ML VIAL.; -LISI10TA2 PO; -MELA3TAB2 PO; -METF500T9 PO; -METO200T5 PO; +MIDAZOLAM HCL/PF 2 MG/2 ML VIAL.; -MONT10TA9 PO; +MORPHINE SULFATE 4 MG/ML DISP.SYRIN. IV; -OLOP2.5D EACHEYE; +ONDANSETRON PF 4 MG/2 ML VIAL.; +ONDANSETRON PF 4 MG/2 ML VIAL. IV; +PHENYLEPHRINE in 0.9% NACL PF 1 MG/10 ML SYRINGE. IV; -PROAIR HFA8.5 GM INH; +PROCHLORPERAZINE 10 MG/2 ML VIAL. IV; +PROPOFOL 40 ML IV; -SENN-22 PO; +SUCCINYLCHOLINE 200 MG/10 ML VIAL.; -TIZA4TAB PO; +fentaNYL PF VIAL 100 MCG/2 ML VIAL IV
[2018-02-03] MEDS: IV RINGERS,LACTATED 1000ML 1,000 ML IV (06:36)
[2018-02-03 06:44] LABS: ADD MAN DIFF? NO
[2018-02-03 06:51] LABS: BASO % 0 % (0-3); EOS % 0 % (0-3); HEMATOCRIT 46.5 % (39.0-53.0); LYMPH # 1.2 x10^3/uL (1.0-4.8); LYMPH % 14 % (24-48); MEAN CORPUSCULAR HEMOGLOBIN 27 pg (25-35); MEAN CORPUSCULAR HGB CONC 32 g/dL (31-37); MEAN CORPUSCULAR VOLUME 84 fL (79-100); MONO # 0.2 x10^3/uL (0.0-1.1); MONO % 3 % (0-9); NEUT # 6.7 x10^3uL (1.8-7.7); NEUT % 82 % (31-73); PLATELET COUNT 293 x10^3/uL (140-400); RED BLOOD COUNT 5.57 x10^6/uL (4.30-5.70); RED CELL DISTRIBUTION WIDTH 15.2 % (11.5-14.5); WHITE BLOOD COUNT 8.2 x10^3/uL (4.0-11.0)
[2018-02-03 06:54] LABS: ANION GAP 11 (6-14); BLOOD UREA NITROGEN 11 mg/dL (8-26); BUN/CREATININE RATIO 11 (6-20); CALCIUM 8.7 mg/dL (8.5-10.1); CARBON DIOXIDE 23 mmol/L (21-32); CHLORIDE 103 mmol/L (98-107); GFR 80.8; GLUCOSE 155 mg/dL (70-99); POTASSIUM 4.1 mmol/L (3.5-5.1); SODIUM 137 mmol/L (136-145)
[2018-02-03 06:55] LABS: BILIRUBIN,URINE NEGATIVE (NEG); CLARITY,URINE CLEAR; COLOR,URINE YELLOW; GLUCOSE,URINE NEGATIVE (NEG); NITRITE,URINE NEGATIVE (NEG); PROTEIN,URINE NEGATIVE (NEG-TRACE); UROBILINOGEN,URINE 0.2 mg/dL (0.2 mg/dL)
[2018-02-03 07:00] LABS: ALBUMIN 3.3 g/dL (3.4-5.0); ALBUMIN/GLOBULIN RATIO 0.8 (1.0-1.7); ALK PHOS 70 U/L (46-116); ALT (SGPT) 26 U/L (16-63); AST (SGOT) 19 U/L (15-37); TOTAL BILIRUBIN 0.7 mg/dL (0.2-1.0); TOTAL PROTEIN 7.5 g/dL (6.4-8.2)
[2018-02-03 07:01] LABS: PARTIAL THROMBOPLASTIN TIME 29 SEC (24-38); PROTHROMBIN TIME PATIENT 13.1 SEC (11.7-14.0)
[2018-02-03 07:17] LABS: BACTERIA,URINE 0 /HPF (0-FEW); SQUAMOUS EPITHELIAL CELL,UR FEW /LPF; WBC,URINE OCC /HPF (0-4)
[2018-02-03] MEDS: ceFAZolin SODIUM 3 GM in IV DEXTROSE 5% 100 ML IV (07:41)
[2018-02-03] MEDS: BUPIVACAINE-EPI 0.25%-1:200000 50 ML VIAL. (07:50)
[2018-02-03 08:41] LABS: POC GLUCOSE 123 mg/dL (70-99)
[2018-02-03] MEDS: IPRATRPIUM/ALBUTEROL 0.5/2.5MG 3 ML NEBU. NEB (08:49)
[2018-02-03] MEDS: HYDROcodone/APAP 10/325 1 TAB TABLET PO (09:42)
[2018-02-03 14:29] LABS: HEMOGLOBIN A1C 5.8 % (4.8-5.6)
== END | disposition home or self-care (01) ==
LOC: SURG 05:37
DX: E11.622 Type 2 diabetes mellitus with other skin ulcer (principal); L97.902 Non-pressure chronic ulcer of unspecified part of unspecified lower leg with fat layer exposed; M70.41 Prepatellar bursitis, right knee; I10 Essential (primary) hypertension; E78.5 Hyperlipidemia, unspecified; Z98.890 Other specified postprocedural states; Z83.3 Family history of diabetes mellitus; Z82.49 Family history of ischemic heart disease and other diseases of the circulatory system; Z79.899 Other long term (current) drug therapy; Z88.0 Allergy status to penicillin; Z88.8 Allergy status to other drugs, medicaments and biological substances
CPT/HCPCS: 12032; 36415; 80053; 81001; 82962; 83036; 85025; 85610; 85730; 87071; 87075; 87205; 94640; J0330; J1100; J2250; J2370; J2405; J2704; J3490; J7620; S0028

== ENCOUNTER → 2018-02-26 | Outpatient (CLI) | payer OTHER | END | disposition home or self-care (01) | LOC: LAB 14:58 | DX: Z98.890 Other specified postprocedural states (principal); I12.9 Hypertensive chronic kidney disease with stage 1 through stage 4 chronic kidney disease, or unspecified chronic kidney disease; E11.22 Type 2 diabetes mellitus with diabetic chronic kidney disease; N18.2 Chronic kidney disease, stage 2 (mild) | CPT/HCPCS: 87071; 87075; 87205 ==

== ENCOUNTER → 2018-02-26 | Outpatient (CLI) | payer OTHER | END | disposition home or self-care (01) | LOC: CT 12:29 | DX: K80.20 Calculus of gallbladder without cholecystitis without obstruction (principal); D71 Functional disorders of polymorphonuclear neutrophils; I12.9 Hypertensive chronic kidney disease with stage 1 through stage 4 chronic kidney disease, or unspecified chronic kidney disease; E11.22 Type 2 diabetes mellitus with diabetic chronic kidney disease; N18.2 Chronic kidney disease, stage 2 (mild) | CPT/HCPCS: 71250 ==

== ENCOUNTER → 2018-10-30 | Outpatient (CLI) | payer OTHER ==
[2017-11-14 14:54] VITALS: BP 142/91
[~2018-10-30] MED LIST changes: +ALBU2.5V8 INH; +ALPR0.254 PO; +AMOX1TAB61 PO; +ATOR40TA59 PO; +BUDE10.2 IH; +CETI10TA22 PO; +CHOL200059 PO; -DESFLURANE 31 TO 60 MINUTES IH; -DEXAMETHASONE SOD PHOS 20 MG/5 ML VIAL.; +DOXY100T PO; +ENOX40DI SQ; +ENOX60DI3 SQ; -ESMOLOL 100 MG/10 ML VIAL. IV; -FAMOTIDINE 20 MG/2 ML VIAL; +FLUT9.9S NS; +FURO-68 PO; -GLYCOPYRROLATE 1 MG/5 ML VIAL.; +HYDR-2765 PO; +HYDR-2769 PO; -HYDROcodone/APAP 10/325 1 TAB TABLET PO; -IPRATRPIUM/ALBUTEROL 0.5/2.5MG 3 ML NEBU.; -IV RINGERS,LACTATED 1000ML 1,000 ML IV; -KETAMINE HCL 500 MG/10 ML VIAL.; -LIDOCAINE 1% PF 2 ML VIAL. ID; -LIDOCAINE 1% PF 5 ML VIAL.; +LISI10TA2 PO; +MELA3TAB2 PO; +METF500T9 PO; +METO200T46 PO; -MIDAZOLAM HCL/PF 2 MG/2 ML VIAL.; +MONT10TA9 PO; -MORPHINE SULFATE 4 MG/ML DISP.SYRIN. IV; +MULT1TAB52 PO; +OLOP2.5D EACHEYE; -ONDANSETRON PF 4 MG/2 ML VIAL.; -ONDANSETRON PF 4 MG/2 ML VIAL. IV; -PHENYLEPHRINE in 0.9% NACL PF 1 MG/10 ML SYRINGE. IV; -PROCHLORPERAZINE 10 MG/2 ML VIAL. IV; -PROPOFOL 40 ML IV; +SENN-22 PO; -SUCCINYLCHOLINE 200 MG/10 ML VIAL.; +TIZA4TAB PO; +ZOLPIDEM 5 MG TABLET. PO ONE; -fentaNYL PF VIAL 100 MCG/2 ML VIAL IV
--- NOTE | 2018-11-04 13:36 | SLEEP ---
DATE OF STUDY: 10/30/2018 ATTENDING PHYSICIAN: Dr. Keon Loyd. The patient is 48-year-old who weighs 598 pounds with a BMI of 81. The patient had a sleep study in 2002 and it was positive for TERRI. The patient lost his CPAP machine. The patient was referred back for reevaluation. During the night study, the patient spent 439 minutes in bed and slept for 334 minutes with a sleep efficiency of 76%. Sleep latency was 16 minutes with a REM latency of 361 minutes. Overall, sleep architecture showed increased stage 1 and stage 2 sleep, normal slow wave and reduced REM sleep. During the initial diagnostic portion of the study, the patient slept for 97 minutes. During that time, there were 25 obstructive apneas, 13 mixed apneas, no central apneas and 132 hypopneas. The patient's apnea hypopnea index was 105 per hour with a supine index of 83 per hour. REM sleep was not seen during the diagnostic portion of the study. EKG monitoring revealed normal sinus rhythm. Average heart rate was 89 beats per minute, no sustained arrhythmias observed. PLMS were not seen. The patient met the criteria for CPAP initiation. He was started at 5 cm water and titrated up to 20 cm of water. However, respiratory events persisted. As a result, the patient was switched to BiPAP at 22/15 and titrated up to a maximum of 28/20. At that final pressure, the patient slept for 46 minutes. The patient had supine sleep throughout and REM sleep was also observed. The patient's AHI was reduced to 0 per hour and oxygen saturation remained above 89%. The patient used a full face medium size mask. IMPRESSION: 1. Severe sleep apnea-hypopnea syndrome at an AHI of 105 per hour. 2. Nocturnal hypoxia secondary to obstructive sleep apnea, but resolved with BiPAP. 3. No clinically significant PLMS. RECOMMENDATIONS: 1. BiPAP at 28/20 completely eliminated the patient's sleep apnea and should be used on a nightly basis. 2. Follow up in 4-6 weeks to assess compliance with BiPAP and to document clinical improvement. 3. Weight loss is strongly advised. 4. Avoid TELETYPIST depressants. 5. Caution regarding driving until symptoms of sleep apnea resolve with the use of BiPAP. VANE U. ARCHER, MD DR: CELESTINE/olvin JOB#: [id number] / [id number] KEON Tsang MD
== END | disposition home or self-care (01) ==
LOC: SLPLAB 18:43
PROVIDERS: ATTEND Internal Medicine Critical Care Medicine
DX: G47.33 Obstructive sleep apnea (adult) (pediatric) (principal); G47.34 Idiopathic sleep related nonobstructive alveolar hypoventilation
CPT/HCPCS: 95810

== ENCOUNTER 2019-01-17 09:16 | Inpatient (IN) | payer OTHER ==
[~2019-01-17] VITALS: Ht 182.9 cm; Wt 271.2 kg
[~2019-01-17 09:16] MED LIST changes: -ZOLPIDEM 5 MG TABLET. PO ONE
[2019-01-17] MEDS ORDERED: fentaNYL PF VIAL 100 MCG/2 ML VIAL IV ONE (09:45)
[2019-01-17] MEDS ORDERED: IV NORMAL SALINE 1000ML BAG 1,000 ML IV ONE (09:45)
[2019-01-17] MEDS ORDERED: ONDANSETRON PF 4 MG/2 ML VIAL. IV ONE (09:45)
--- NOTE | 2019-01-17 10:07 | RAD ---
Examination: ACUTE ABDOMEN SERIES History: PT STATES COUGH, FATIGUE, SHORT OF BREATH. Comparison/Correlation: CT chest without contrast 02/26/2018 Findings: Frontal view of the chest was obtained. Frontal views of the abdomen were provided. Heart size and pulmonary vasculature are normal. No infiltrate or pleural effusion. No pneumothorax. Bowel gas pattern is unremarkable. No bowel obstructive. Cholelithiasis is noted. Right upper quadrant gallstone measuring 3.3 cm diameter noted. Impression: No infiltrate. Cholelithiasis. No bowel obstruction. Electronically signed by: Armand Horn MD (01/17/2019 10:05 AM) [facility]
[2019-01-17 10:12] LABS: BILIRUBIN,URINE NEGATIVE (NEG); CLARITY,URINE CLEAR; COLOR,URINE YELLOW; NITRITE,URINE NEGATIVE (NEG); PROTEIN,URINE NEGATIVE (NEG-TRACE); UROBILINOGEN,URINE 0.2 mg/dL (0.2 mg/dL)
[2019-01-17 10:19] LABS: BACTERIA,URINE FEW /HPF (0-FEW); RBC,URINE TNTC /HPF (0-2); SQUAMOUS EPITHELIAL CELL,UR MOD /LPF
[2019-01-17 10:35] LABS: BASO # 0.1 x10^3/uL (0.0-0.2); BASO % 1 % (0-3); EOS # 0.3 x10^3/uL (0.0-0.7); EOS % 3 % (0-3); HEMATOCRIT 43.9 % (39.0-53.0); LYMPH # 1.3 x10^3/uL (1.0-4.8); LYMPH % 10 % (24-48); MEAN CORPUSCULAR HEMOGLOBIN 26 pg (25-35); MEAN CORPUSCULAR HGB CONC 32 g/dL (31-37); MEAN CORPUSCULAR VOLUME 81 fL (79-100); MONO # 0.9 x10^3/uL (0.0-1.1); MONO % 7 % (0-9); NEUT # 10.2 x10^3uL (1.8-7.7); NEUT % 80 % (31-73); PLATELET COUNT 298 x10^3/uL (140-400); RED CELL DISTRIBUTION WIDTH 16.1 % (11.5-14.5); WHITE BLOOD COUNT 12.8 x10^3/uL (4.0-11.0)
[2019-01-17 10:48] LABS: CALCIUM 9.1 mg/dL (8.5-10.1); CREATININE 1.4 mg/dL (0.7-1.3); GFR 54.6; POTASSIUM 3.4 mmol/L (3.5-5.1)
[2019-01-17 10:54] LABS: ALBUMIN 3.6 g/dL (3.4-5.0); ALBUMIN/GLOBULIN RATIO 0.9 (1.0-1.7); TOTAL BILIRUBIN 0.8 mg/dL (0.2-1.0); TOTAL PROTEIN 7.6 g/dL (6.4-8.2)
[2019-01-17] MEDS ORDERED: MORPHINE SULFATE 10 MG/ML VIAL. IV ONE (12:00)
--- NOTE | 2019-01-17 12:28 | RAD ---
Examination: CT ABDOMEN PELVIS WO CONTRAST History: abd pain today
patient weights 500 lbs Comparison/Correlation: None Findings: Axial images of the abdomen and pelvis were obtained without contrast. Sagittal and coronal reformatted images were provided. Patient body habitus evaluation. The visualized lung bases are unremarkable. Visualized liver is unremarkable. The lateral aspect of the liver inferiorly, the right flank overall, and left abdominal wall subcutaneous fat are not included due to patient size. Spleen is unremarkable. There are a few gallbladder calculi. One of these measuring 2.9 cm diameter at the gallbladder neck identified. Evaluation for inflammatory change about the gallbladder is limited due to artifact related to body habitus. Adrenal glands are normal. Nonobstructive right renal inferior pole calyceal calculus measures 1 cm diameter. Left renal inferior pole calyceal calculus measuring 1 cm diameter noted. Left hydronephrosis is present. Left perinephric stranding identified. There is a 0.4 cm diameter distal left ureteral calculus. Urinary bladder is unremarkable. No bowel obstruction. No extraluminal gas. No ascites. No pelvic free fluid. Evaluation of bony structures is limited. No suspicious acute bony process. Impression: Distal left ureteral obstructive calculus. Associated hydronephrosis. Cholelithiasis. No biliary dilatation. Evaluation of the gallbladder otherwise is limited. PQRS Compliance Statement: One or more of the following individualized dose reduction techniques were utilized for this examination: 1. Automated exposure control 2. Adjustment of the mA and/or kV according to patient size 3. Use of iterative reconstruction technique Electronically signed by: Armand Horn MD (01/17/2019 12:25 PM) [facility]
[2019-01-17] MEDS ORDERED: ONDANSETRON PF 4 MG/2 ML VIAL. IV PRN (13:30)
[2019-01-17] MEDS: fentaNYL PF VIAL 100 MCG/2 ML VIAL IV PRN ×2 (14:22→15:54)
[2019-01-17] MEDS: MORPHINE SULFATE 4 MG/ML VIAL. IV PRN ×2 (14:36→17:11)
[2019-01-17 15:00] VITALS: BP 163/95
--- NOTE | 2019-01-17 15:30 | NUR ---
This patient arrived to the unit via gurney was able to ambulate to the bed, call light within reach of patient, oriented to room. This nurse will continue to monitor.
[2019-01-17] MEDS ORDERED: DILT240C66 PO (15:33)
[2019-01-17] MEDS ORDERED: ASPI-630 PO (15:33)
[2019-01-17] MEDS ORDERED: LOSA25TA PO (15:33)
[2019-01-17] MEDS ORDERED: TIOT18CA IH (16:39)
[2019-01-17] MEDS ORDERED: metFORMIN XR 500 MG TAB.ER.24H PO SCH (17:00)
[2019-01-17] MEDS ORDERED: tiZANidine 4 MG TABLET. PO PRN (17:00)
[2019-01-17] MEDS: IV NORMAL SALINE 1000ML BAG 1,000 ML IV SCH ×3 (17:11→23:42)
[2019-01-17] MEDS: MULTIVITAMIN with MINERAL TABLET. PO SCH (17:11)
[2019-01-17] MEDS ORDERED: PRED-220 PO (17:16)
[2019-01-17] MEDS: predniSONE 10 MG TABLET PO SCH (17:47)
--- NOTE | 2019-01-17 18:00 | NUR ---
This nurse called and ordered special bed/chair for this patient. Conf. # [id number]
[2019-01-17] MEDS ORDERED: TAMSULOSIN 0.4 MG CAP.ER.24H. PO ONE (18:30)
--- NOTE | 2019-01-17 18:33 | PDOC2 ---
UROLOGY CONSULT Date of Admission DATE: 01/17/19 TIME: 18:28 Chief Complaint left renal colic Source: Chart review, Patient 2days of left renal colci, no fever, no chills. No prior stones. ct with bl LP renal stone, 4mm left distal stone with mild to mod hydro. ua with bacteria cr 1.4 (?baseline) ROS ROS: RESPIRATORY: Shortness of breath denies. Cough denies. UROLOGY: Denies blood in urine. Denies difficulty urinating Past Surgical History: Other (r knee arthroscopy) Current Medications Current Medications Sodium Chloride 1,000 ml @ 1,000 mls/hr 1X ONCE IV Last administered on 10:48; Start 01/17/19 at 09:45; Stop 01/17/19 at 10:44; Status DC Fentanyl Citrate (Fentanyl 2ml Vial) 75 mcg 1X ONCE IV Last administered on 10:49; Start 01/17/19 at 09:45; Stop 01/17/19 at 09:46; Status DC Ondansetron HCl (Zofran) 4 mg 1X ONCE IV Last administered on 01/17/19 10:48 ; Start 01/17/19 at 09:45; Stop 01/17/19 at 09:46; Status DC Morphine Sulfate (Morphine Sulfate) 6 mg 1X ONCE IV Last administered on 11:36; Start 01/17/19 at 12:00; Stop 01/17/19 at 12:01; Status DC Ondansetron HCl (Zofran) 4 mg PRN Q8HRS PRN IV NAUSEA/VOMITING Last administered on 01/17/19 14:25; Start 01/17/19 at 13:30; Stop 01/18/19 at 13:29 Morphine Sulfate (Morphine Sulfate) 4 mg PRN Q2HR PRN IV PAIN Last administered on 01/17/19 17:11; Start 01/17/19 at 13:30; Stop 01/18/19 at 13:29 Fentanyl Citrate (Fentanyl 2ml Vial) 50 mcg PRN Q1HR PRN IV PAIN Last administered on 01/17/19 15:54; Start 01/17/19 at 13:30; Stop 01/18/19 at 13:29 Sodium Chloride 1,000 ml @ 125 mls/hr Q8H IV Last administered on 01/17/19at 17 :11; Start 01/17/19 at 13:17; Stop 01/18/19 at 13:16 Aspirin (Children'S Aspirin) 81 mg DAILY PO ; Start 01/18/19 at 09:00 Atorvastatin Calcium (Lipitor) 40 mg DAILY PO ; Start 01/18/19 at 09:00 Cetirizine HCl (ZyrTEC) 10 mg QHS PO ; Start 01/17/19 at 21:00 Losartan Potassium (Cozaar) 25 mg DAILY PO ; Start 01/18/19 at 09:00 Non-Formulary Medication (Budesonide/ Formoterol Fumarate (Symbicort 160-4.5 Mcg Inhaler)) 2 puff BID IH ; Start 01/17/19 at 21:00; Status UNV Vitamin D (Vitamin D3) 1,000 unit DAILY PO ; Start 01/18/19 at 09:00; Stop 01/18 at 09:00; Status DC Diltiazem HCl (Cardizem 24hr Cd) 480 mg DAILY PO ; Start 01/18/19 at 09:00 Non-Formulary Medication (Melatonin ) 5 mg QHS PO ; Start 01/17/19 at 21:00; Status UNV Metformin HCl (Glucophage Xr) 500 mg DAILYWBKFT PO ; Start 01/18/19 at 08:00; Stop 01/18/19 at 08:00; Status DC Montelukast Sodium (Singulair) 10 mg QHS PO ; Start 01/17/19 at 21:00 Multivitamins (Thera M Plus) 1 tab DAILY PO ; Start 01/18/19 at 09:00; Stop at 09:00; Status DC Non-Formulary Medication (Tiotropium [place] (Spiriva)) 2 inh DAILY IH ; Start 01/18/19 at 09:00; Status UNV Tizanidine HCl (Zanaflex) 4 mg PRN Q8HRS PRN PO MUSCLE SPASMS; Start 01/17/19 at 17:00 Vitamin D (Vitamin D3) 1,000 unit DAILYBFRSUP PO ; Start 01/18/19 at 09:00 Metformin HCl (Glucophage Xr) 500 mg DAILYBFRSUP PO Last administered on at 17:11; Start 01/17/19 at 17:00 Multivitamins (Thera M Plus) 1 tab DAILYBFRSUP PO Last administered on at 17:11; Start 01/17/19 at 17:00 Albuterol Sulfate (Ventolin Neb Soln) 2.5 mg RTQID NEB ; Start 01/17/19 at 20:00 Budesonide (Pulmicort) 0.5 mg RTBID NEB ; Start 01/17/19 at 20:00 Prednisone (Prednisone) 10 mg DAILY PO ; Start 01/17/19 at 18:00 Oxycodone/ Acetaminophen (Percocet 10/325) 1 tab PRN Q6HRS PRN PO PAIN; Start 01/17/19 at 18:30 Tamsulosin HCl (Flomax) 0.4 mg 1X ONCE PO ; Start 01/17/19 at 18:30; Stop 01/17 at 18:31 Tamsulosin HCl (Flomax) 0.4 mg DAILY PO ; Start 01/18/19 at 09:00 Active Scripts Active Reported Prednisone (Prednisone) 10 Mg Tablet 10 Mg PO DAILY Spiriva (Tiotropium [place]) 18 Mcg Cap.w.dev 2 Inh IH DAILY Cartia Xt (Diltiazem Hcl) 240 Mg Cap.er.24h 480 Mg PO HS PRN Cozaar (Losartan Potassium) 25 Mg Tablet 25 Mg PO DAILY Aspirin 81 Mg Tab.chew 1 Tab PO HS Hydrocodone-Apap 10-325 (Hydrocodone Bit/Acetaminophen) 1 Each Tablet 1-2 Tab PO PRN Q4-6HRS PRN Vitamin D-3 (Cholecalciferol (Vitamin D3)) 2,000 Unit Tablet 2,000 Unit PO DAILY Augmentin 875-125 Tablet (Amoxicillin/Potassium Clav) 1 Each Tablet 1 Tab PO BID Multivitamins (Multivitamin) 1 Each Tablet 1 Each PO DAILY Metformin Hcl Er (Metformin Hcl) 500 Mg Tab.er.24h 500 Mg PO DAILYWBKFT Symbicort 160-4.5 Mcg Inhaler (Budesonide/Formoterol Fumarate) 10.2 Gm Hfa.aer.ad 2 Puff IH BID Melatonin 3 Mg Tablet 5 Mg PO QHS Lasix (Furosemide) 40 Mg Tablet 1 Tab PO DAILY Atorvastatin Calcium 40 Mg Tablet 1 Tab PO HS Montelukast Sodium Tablet (Montelukast Sodium) 10 Mg Tablet 10 Mg PO HS Metoprolol Succinate ( Xl ) (Metoprolol Succinate) 200 Mg Tab.er.24h 1 Tab PO HS Lisinopril 10 Mg Tablet 1 Tab PO DAILY Proair Hfa Inhaler (Albuterol Sulfate) 8.5 Gm Hfa.aer.ad 1 Puff INH PRN Q4HRS PRN Tizanidine Hcl 4 Mg Tablet 4 Mg PO TID PRN Flonase Allergy Relief (Fluticasone Propionate) 9.9 Ml [place].susp 2 Sprays NS DAILY Zyrtec (Cetirizine Hcl) 10 Mg Tablet 1 Tab PO QHS Allergies: Coded Allergies: aspartame (Verified Allergy, Intermediate, 02/03/18) saccharin (Verified Allergy, Intermediate, 02/03/18) sucralose (Verified Allergy, Intermediate, 02/03/18) tomato (Verified Allergy, Intermediate, SNEEZING, 02/03/18) pt starts sneezing Physical Examination PHYSICAL EXAMINATION: GENERAL: Gen. appearance: No acute distress. Mood/affect: Pleasant. Obese HEENT: Head: Normocephalic, atraumatic. Airway Impairment: No. CHEST: Shape and expansion: Normal. Expansion: Normal. SKIN: General: Warm. Color: Good. bl LE suppurative edema GENITOURINARY:External genitalia - wnl. NEUROLOGICAL: Mental status: Alert and oriented 3. Language: Normal. VITALS Vital Signs Date Time Temp Pulse Resp B/P (MAP) Pulse Ox O2 Delivery O2 Flow Rate FiO2 01/17/19 17:47 97 Room Air 01/17/19 15:00 97.7 105 14 163/95 (117) 97.7 Labs Laboratory Tests Test 01/17/19 10:00 01/17/19 10:20 Urine Collection Type Void Urine Color Yellow Urine Clarity Clear Urine pH 6.0 Urine Specific [place] 1.025 Urine Protein Negative mg/dL (NEG-TRACE) Urine Glucose (UA) Negative mg/dL (NEG) Urine Ketones (Stick) Negative mg/dL (NEG) Urine Blood Large (NEG) Urine Nitrite Negative (NEG) Urine Bilirubin Negative (NEG) Urine Urobilinogen Dipstick 0.2 mg/dL (0.2 mg/dL) Urine Leukocyte Esterase Negative (NEG) Urine RBC Tntc /HPF (0-2) Urine WBC 1-4 /HPF (0-4) Urine Squamous Epithelial Cells Mod /LPF Urine Bacteria Few /HPF (0-FEW) Urine Mucus Marked /LPF White Blood Count 12.8 x10^3/uL (4.0-11.0) Red Blood Count 5.40 x10^6/uL (4.30-5.70) Hemoglobin 14.0 g/dL (13.0-17.5) Hematocrit 43.9 % (39.0-53.0) Mean Corpuscular Volume 81 fL (79-100) Mean Corpuscular Hemoglobin 26 pg (25-35) Mean Corpuscular Hemoglobin Concent 32 g/dL (31-37) Red Cell Distribution Width 16.1 % (11.5-14.5) Platelet Count 298 x10^3/uL (140-400) Neutrophils (%) (Auto) 80 % (31-73) Lymphocytes (%) (Auto) 10 % (24-48) Monocytes (%) (Auto) 7 % (0-9) Eosinophils (%) (Auto) 3 % (0-3) Basophils (%) (Auto) 1 % (0-3) Neutrophils # (Auto) 10.2 x10^3uL (1.8-7.7) Lymphocytes # (Auto) 1.3 x10^3/uL (1.0-4.8) Monocytes # (Auto) 0.9 x10^3/uL (0.0-1.1) Eosinophils # (Auto) 0.3 x10^3/uL (0.0-0.7) Basophils # (Auto) 0.1 x10^3/uL (0.0-0.2) Sodium Level 139 mmol/L (136-145) Potassium Level 3.4 mmol/L (3.5-5.1) Chloride Level 99 mmol/L (98-107) Carbon Dioxide Level 28 mmol/L (21-32) Anion Gap 12 (6-14) Blood Urea Nitrogen 15 mg/dL (8-26) Creatinine 1.4 mg/dL (0.7-1.3) Estimated GFR (Cockcroft-Gault) 54.6 BUN/Creatinine Ratio 11 (6-20) Glucose Level 129 mg/dL (70-99) Calcium Level 9.1 mg/dL (8.5-10.1) Total Bilirubin 0.8 mg/dL (0.2-1.0) Aspartate Amino Transf (AST/SGOT) 20 U/L (15-37) Alanine Aminotransferase (ALT/SGPT) 23 U/L (16-63) Alkaline Phosphatase 85 U/L (46-116) Total Protein 7.6 g/dL (6.4-8.2) Albumin 3.6 g/dL (3.4-5.0) Albumin/Globulin Ratio 0.9 (1.0-1.7) Amylase Level 23 U/L (25-115) Lipase 93 U/L (73-393) Laboratory Tests Test 01/17/19 10:00 01/17/19 10:20 Urine Collection Type Void Urine Color Yellow Urine Clarity Clear Urine pH 6.0 Urine Specific [place] 1.025 Urine Protein Negative mg/dL (NEG-TRACE) Urine Glucose (UA) Negative mg/dL (NEG) Urine Ketones (Stick) Negative mg/dL (NEG) Urine Blood Large (NEG) Urine Nitrite Negative (NEG) Urine Bilirubin Negative (NEG) Urine Urobilinogen Dipstick 0.2 mg/dL (0.2 mg/dL) Urine Leukocyte Esterase Negative (NEG) Urine RBC Tntc /HPF (0-2) Urine WBC 1-4 /HPF (0-4) Urine Squamous Epithelial Cells Mod /LPF Urine Bacteria Few /HPF (0-FEW) Urine Mucus Marked /LPF White Blood Count 12.8 x10^3/uL (4.0-11.0) Red Blood Count 5.40 x10^6/uL (4.30-5.70) Hemoglobin 14.0 g/dL (13.0-17.5) Hematocrit 43.9 % (39.0-53.0) Mean Corpuscular Volume 81 fL (79-100) Mean Corpuscular Hemoglobin 26 pg (25-35) Mean Corpuscular Hemoglobin Concent 32 g/dL (31-37) Red Cell Distribution Width 16.1 % (11.5-14.5) Platelet Count 298 x10^3/uL (140-400) Neutrophils (%) (Auto) 80 % (31-73) Lymphocytes (%) (Auto) 10 % (24-48) Monocytes (%) (Auto) 7 % (0-9) Eosinophils (%) (Auto) 3 % (0-3) Basophils (%) (Auto) 1 % (0-3) Neutrophils # (Auto) 10.2 x10^3uL (1.8-7.7) Lymphocytes # (Auto) 1.3 x10^3/uL (1.0-4.8) Monocytes # (Auto) 0.9 x10^3/uL (0.0-1.1) Eosinophils # (Auto) 0.3 x10^3/uL (0.0-0.7) Basophils # (Auto) 0.1 x10^3/uL (0.0-0.2) Sodium Level 139 mmol/L (136-145) Potassium Level 3.4 mmol/L (3.5-5.1) Chloride Level 99 mmol/L (98-107) Carbon Dioxide Level 28 mmol/L (21-32) Anion Gap 12 (6-14) Blood Urea Nitrogen 15 mg/dL (8-26) Creatinine 1.4 mg/dL (0.7-1.3) Estimated GFR (Cockcroft-Gault) 54.6 BUN/Creatinine Ratio 11 (6-20) Glucose Level 129 mg/dL (70-99) Calcium Level 9.1 mg/dL (8.5-10.1) Total Bilirubin 0.8 mg/dL (0.2-1.0) Aspartate Amino Transf (AST/SGOT) 20 U/L (15-37) Alanine Aminotransferase (ALT/SGPT) 23 U/L (16-63) Alkaline Phosphatase 85 U/L (46-116) Total Protein 7.6 g/dL (6.4-8.2) Albumin 3.6 g/dL (3.4-5.0) Albumin/Globulin Ratio 0.9 (1.0-1.7) Amylase Level 23 U/L (25-115) Lipase 93 U/L (73-393) Images ct reviewed by myself Assessment/Plan bl renal stone, not obstructing, will observe. 4mm left distal ureter stone. recommend ivf, flomax, po pain med and prn iv. fu CR trend will follow. MJ BRYANT MD Jan 17, 2019 18:32
[2019-01-17 19:00] VITALS: BP 137/95
--- NOTE | 2019-01-17 19:15 | PHYS DOC ---
Past Medical History Past Medical History: Bronchitis, Diabetes-Type II, Hypertension, Other Additional Past Medical Histor: MORBID OBESITY Past Surgical History: Knee Replacement Alcohol Use: Occasionally Drug Use: None Adult General Chief Complaint Chief Complaint: ABDOMINAL PAIN HPI HPI Patient is a 48 year old male who presents with left flank pain. The patient states that it has worsened over the past 12 hours significantly. He denies any history of gallstones, kidney stones or abdominal surgeries. The patient states that he has had some nausea related to the pain but denies vomiting, diarrhea or constipation. He denies chest pain or shortness of breath. The patient is positive for morbid obesity and high cholesterol. The patient also has hypertension and takes medications at home as scheduled. Review of Systems Review of Systems Constitutional: Denies fever or chills [] Eyes: Denies change in visual acuity, redness, or eye pain [] HENT: Denies nasal congestion or sore throat [] Respiratory: Denies cough or shortness of breath [] Cardiovascular: No additional information not addressed in HPI [] GI: See history of present illness : Denies dysuria or hematuria [] Musculoskeletal: Denies back pain or joint pain [] Integument: Denies rash or skin lesions [] Neurologic: Denies headache, focal weakness or sensory changes [] Endocrine: Denies polyuria or polydipsia [] All other systems were reviewed and found to be within normal limits, except as documented in this note. Current Medications Current Medications Current Medications Medications (Trade) Dose Ordered Sig/Damian Start Time Stop Time Status Last Admin Dose Admin Fentanyl Citrate (Fentanyl 2ml Vial) 75 mcg 1X ONCE 01/17/19 09:45 01/17/19 09:46 DC 01/17/19 10:49 75 MCG Morphine Sulfate (Morphine Sulfate) 6 mg 1X ONCE 01/17/19 12:00 01/17/19 12:01 DC 01/17/19 11:36 6 MG Ondansetron HCl (Zofran) 4 mg 1X ONCE 01/17/19 09:45 01/17/19 09:46 DC 01/17/19 10:48 4 MG Sodium Chloride 1,000 ml @ 1,000 mls/hr 1X ONCE 01/17/19 09:45 01/17/19 10:44 DC 01/17/19 10:48 1,000 MLS/HR Allergies Allergies Allergies Coded Allergies Type Severity Reaction Last Updated Verified aspartame Allergy Intermediate 02/03/18 Yes saccharin Allergy Intermediate 02/03/18 Yes sucralose Allergy Intermediate 02/03/18 Yes tomato Allergy Intermediate SNEEZING 02/03/18 Yes Physical Exam Physical Exam Constitutional: Well developed, well nourished, no acute distress, non-toxic appearance. [] HENT: Normocephalic, atraumatic, bilateral external ears normal, oropharynx moist, no oral exudates, nose normal. [] Eyes: PERRLA, EOMI, conjunctiva normal, no discharge. [] Neck: Normal range of motion, no tenderness, supple, no stridor. [] Cardiovascular:Heart rate regular rhythm, no murmur [] Lungs & Thorax: Bilateral breath sounds clear to auscultation [] Abdomen: Bowel sounds normal, soft, tenderness to left flank wrapping around into the left abdomen, no masses, no pulsatile masses. [] Skin: Warm, dry, no erythema, no rash. [] Back: No tenderness, left CVA tenderness. [] Extremities: No tenderness, no cyanosis, no clubbing, ROM intact, no edema. [] Neurologic: Alert and oriented X 3, normal motor function, normal sensory function, no focal deficits noted. [] Psychologic: Affect normal, judgement normal, mood normal. [] Current Patient Data Vital Signs Vital Signs Date Time Temp Pulse Resp B/P (MAP) Pulse Ox O2 Delivery O2 Flow Rate FiO2 01/17/19 12:30 82 22 139/84 (102) 98 Room Air 01/17/19 09:20 99.0 99.0 Lab Values Laboratory Tests Test 01/17/19 10:00 01/17/19 10:20 Urine Collection Type Void Urine Color Yellow Urine Clarity Clear Urine pH 6.0 Urine Specific [place] 1.025 Urine Protein Negative mg/dL (NEG-TRACE) Urine Glucose (UA) Negative mg/dL (NEG) Urine Ketones (Stick) Negative mg/dL (NEG) Urine Blood Large (NEG) Urine Nitrite Negative (NEG) Urine Bilirubin Negative (NEG) Urine Urobilinogen Dipstick 0.2 mg/dL (0.2 mg/dL) Urine Leukocyte Esterase Negative (NEG) Urine RBC Tntc /HPF (0-2) Urine WBC 1-4 /HPF (0-4) Urine Squamous Epithelial Cells Mod /LPF Urine Bacteria Few /HPF (0-FEW) Urine Mucus Marked /LPF White Blood Count 12.8 x10^3/uL (4.0-11.0) H Red Blood Count 5.40 x10^6/uL (4.30-5.70) Hemoglobin 14.0 g/dL (13.0-17.5) Hematocrit 43.9 % (39.0-53.0) Mean Corpuscular Volume 81 fL (79-100) Mean Corpuscular Hemoglobin 26 pg (25-35) Mean Corpuscular Hemoglobin Concent 32 g/dL (31-37) Red Cell Distribution Width 16.1 % (11.5-14.5) H Platelet Count 298 x10^3/uL (140-400) Neutrophils (%) (Auto) 80 % (31-73) H Lymphocytes (%) (Auto) 10 % (24-48) L Monocytes (%) (Auto) 7 % (0-9) Eosinophils (%) (Auto) 3 % (0-3) Basophils (%) (Auto) 1 % (0-3) Neutrophils # (Auto) 10.2 x10^3uL (1.8-7.7) H Lymphocytes # (Auto) 1.3 x10^3/uL (1.0-4.8) Monocytes # (Auto) 0.9 x10^3/uL (0.0-1.1) Eosinophils # (Auto) 0.3 x10^3/uL (0.0-0.7) Basophils # (Auto) 0.1 x10^3/uL (0.0-0.2) Sodium Level 139 mmol/L (136-145) Potassium Level 3.4 mmol/L (3.5-5.1) L Chloride Level 99 mmol/L (98-107) Carbon Dioxide Level 28 mmol/L (21-32) Anion Gap 12 (6-14) Blood Urea Nitrogen 15 mg/dL (8-26) Creatinine 1.4 mg/dL (0.7-1.3) H Estimated GFR (Cockcroft-Gault) 54.6 BUN/Creatinine Ratio 11 (6-20) Glucose Level 129 mg/dL (70-99) H Calcium Level 9.1 mg/dL (8.5-10.1) Total Bilirubin 0.8 mg/dL (0.2-1.0) Aspartate Amino Transferase (AST) 20 U/L (15-37) Alanine Aminotransferase (ALT) 23 U/L (16-63) Alkaline Phosphatase 85 U/L (46-116) Total Protein 7.6 g/dL (6.4-8.2) Albumin 3.6 g/dL (3.4-5.0) Albumin/Globulin Ratio 0.9 (1.0-1.7) L Amylase Level 23 U/L (25-115) L Lipase 93 U/L (73-393) Laboratory Tests 01/17/19 10:20 Laboratory Tests 01/17/19 10:20 EKG EKG [] Radiology/Procedures Radiology/Procedures []PATIENT: KENNEY HAYWARD CACCOUNT: [id number]#: [id number] : 1970 LOCATION: ER AGE: 48 SEX: M EXAM STATUS: REG ER ORD. PHYSICIAN: ADRIANA MANUEL APRN REASON: abdominal pain PROCEDURE: CT ABDOMEN PELVIS WO CONTRAST Examination: CT ABDOMEN PELVIS WO CONTRAST History: abd pain today
patient weights 500 lbs Comparison/Correlation: None Findings: Axial images of the abdomen and pelvis were obtained without contrast. Sagittal and coronal reformatted images were provided. Patient body habitus evaluation. The visualized lung bases are unremarkable. Visualized liver is unremarkable. The lateral aspect of the liver inferiorly, the right flank overall, and left abdominal wall subcutaneous fat are not included due to patient size. Spleen is unremarkable. There are a few gallbladder calculi. One of these measuring 2.9 cm diameter at the gallbladder neck identified. Evaluation for inflammatory change about the gallbladder is limited due to artifact related to body habitus. Adrenal glands are normal. Nonobstructive right renal inferior pole calyceal calculus measures 1 cm diameter. Left renal inferior pole calyceal calculus measuring 1 cm diameter noted. Left hydronephrosis is present. Left perinephric stranding identified. There is a 0.4 cm diameter distal left ureteral calculus. Urinary bladder is unremarkable. No bowel obstruction. No extraluminal gas. No ascites. No pelvic free fluid. Evaluation of bony structures is limited. No suspicious acute bony process. Impression: Distal left ureteral obstructive calculus. Associated hydronephrosis. Cholelithiasis. No biliary dilatation. Evaluation of the gallbladder otherwise is limited. PQRS Compliance Statement: One or more of the following individualized dose reduction techniques were utilized for this examination: 1. Automated exposure control 2. Adjustment of the mA and/or kV according to patient size 3. Use of iterative reconstruction technique Electronically signed by: Armand Dickerson MD (01/17/2019 12:25 PM) [facility] DICTATED and SIGNED BY: ARMAND DICKERSON MD DATE: 01/17/19 1612 Course & Med Decision Making Course & Med Decision Making Pertinent Labs and Imaging studies reviewed. (See chart for details) []He patient was given IV fluids and pain medication in the emergency department. We discussed following up outpatient versus inpatient care. The patient does not feel like his pain can be controlled at home and prefers to be admitted. Dr. Suárez has accepted the patient to his service. Urology was consulted. Dragon Disclaimer Dragon Disclaimer This electronic medical record was generated, in whole or in part, using a voice recognition dictation system. Departure Departure Impression: Primary Impression: Hydronephrosis Additional Impression: Ureteral stone Disposition: ADMITTED INPATIENT Admitting Physician: Tricia Suárez Condition: STABLE Problem Qualifiers ADRIANA MANUEL APRN Jan 17, 2019 19:15
[2019-01-17] MEDS: oxyCODONE/APAP 10/325 1 TAB TABLET PO PRN (19:33)
[2019-01-17] MEDS: BUDESONIDE 0.5 MG/2 ML NEBU. NEB SCH (19:50)
[2019-01-17] MEDS: ALBUTEROL SULFATE 2.5 MG/3 ML NEBU. NEB SCH (19:50)
[2019-01-17] MEDS: CETIRIZINE HCL 10 MG TABLET. PO SCH ×2 (21:00→23:41)
[2019-01-17] MEDS ORDERED: NON FORMULARY ITEM (Melatonin 5 MG) PO SCH (21:00)
[2019-01-17] MEDS ORDERED: NON FORMULARY ITEM (Budesonide/Formoterol Fumarate (Symbicort 160-4.5 Mcg Inhaler) 2 PUFF) IH SCH (21:00)
[2019-01-17] MEDS: MONTELUKAST SODIUM 10 MG TABLET. PO SCH ×2 (21:00→23:41)
[2019-01-17 22:55] VITALS: BP 126/85
[2019-01-18 03:00] VITALS: BP 159/87
[2019-01-18] MEDS: oxyCODONE/APAP 10/325 1 TAB TABLET PO PRN ×2 (06:34→16:26)
[2019-01-18 07:00] VITALS: BP 152/82
[2019-01-18] MEDS: ALBUTEROL SULFATE 2.5 MG/3 ML NEBU. NEB SCH ×4 (07:30→19:35)
[2019-01-18] MEDS: BUDESONIDE 0.5 MG/2 ML NEBU. NEB SCH ×2 (07:30→19:38)
[2019-01-18] MEDS ORDERED: metFORMIN XR 500 MG TAB.ER.24H PO SCH (08:00)
[2019-01-18] MEDS: ATORVASTATIN CALCIUM 40 MG TABLET. PO SCH (08:56)
[2019-01-18] MEDS: TAMSULOSIN 0.4 MG CAP.ER.24H. PO SCH (08:56)
[2019-01-18] MEDS: predniSONE 10 MG TABLET PO SCH (08:56)
[2019-01-18] MEDS: ASPIRIN CHEWABLE 81 MG TABLET. PO SCH (08:56)
[2019-01-18] MEDS: CHOLECALCIFEROL (VITAMIN D3) 1,000 UNIT TABLET PO SCH ×2 (08:56→16:25)
[2019-01-18] MEDS: LOSARTAN POTASSIUM 25 MG TABLET. PO SCH (08:58)
[2019-01-18] MEDS ORDERED: CHOLECALCIFEROL (VITAMIN D3) 1,000 UNIT TABLET PO SCH (09:00)
[2019-01-18] MEDS ORDERED: ONDANSETRON PF 4 MG/2 ML VIAL. IV PRN (09:00)
[2019-01-18] MEDS ORDERED: MULTIVITAMIN with MINERAL TABLET. PO SCH (09:00)
[2019-01-18] MEDS ORDERED: fentaNYL PF VIAL 100 MCG/2 ML VIAL IV PRN (09:00)
[2019-01-18] MEDS ORDERED: NON FORMULARY ITEM (Tiotropium Bromide (Spiriva) 2 INH) IH SCH (09:00)
--- NOTE | 2019-01-18 09:47 | PDOC ---
Provider Note Provider Note Combined history and physical and discharge summary dictated. Number [id number] KEON SOLARES MD Jan 18, 2019 09:47
[2019-01-18] MEDS ORDERED: TAMS0.4C97 PO (09:50)
--- NOTE | 2019-01-18 09:54 | DISCH ---
DISCHARGE INSTRUCTIONS Condition on Discharge Condition on Discharge: Stable Activity After Discharge Activity Instructions for Disc: Activity as tolerated Weight Bearing Status after Di: No restrictions Diet after Discharge Diet after Discharge: Cardiac (ADA) Diet Texture: Regular Liquid Texture: Thin Liquid Contacting the DRNatasha after DC Call your doctor for: Concerns you may have Follow-Up Follow up with: Dr. KEON Loyd in 5 days Follow Up With: Dr. Grove Treatment/Equipment after DC Adaptive Equipment Issued: Walker (as needed) Discharge Respiratory Equipmen: KEON Silveira MD Jan 18, 2019 09:54
--- NOTE | 2019-01-18 09:54 | PDOC ---
SUBJECTIVE Subjective Pt doing well this am, no pain or dysuria. He has noticed some particulates in his urine like tiny dust or strands; he thinks this may be coming out on its own. OBJECTIVE Objective Physical Exam: General appearance: Alert and Oriented Head: Normocephalic, without obvious abnormality Eyes: conjunctivae/corneas clear. PERRL, EOM's intact. Fundi benign Lungs: Regular respirations, non labored breathing Abdomen: soft, non-tender, morbidly obese.. No masses, no organomegaly Pelvic: deferred Vital Signs Vital Signs Date Time Temp Pulse Resp B/P (MAP) Pulse Ox O2 Delivery O2 Flow Rate FiO2 01/18/19 08:58 95 150/84 01/18/19 08:58 95 150/84 01/18/19 07:40 BiPAP/CPAP 01/18/19 07:34 94 Room Air 01/18/19 07:30 94 Room Air 01/18/19 07:00 98.3 108 20 152/82 (105) 95 Room Air 98.3 01/18/19 06:34 98 01/18/19 04:24 BiPAP/CPAP 01/18/19 03:00 98.7 97 18 159/87 (111) 98 Room Air 98.7 01/17/19 22:55 97.5 92 18 126/85 (99) 98 Room Air 97.5 01/17/19 22:01 BiPAP/CPAP 01/17/19 20:35 98 01/17/19 20:00 Bi-pap 01/17/19 19:52 98 BiPAP/CPAP 01/17/19 19:50 94 Room Air 01/17/19 19:33 97 Room Air 01/17/19 19:00 98.1 99 18 137/95 (109) 94 Room Air 98.1 01/17/19 17:47 97 Room Air 01/17/19 17:12 97 Room Air 01/17/19 17:11 97 Room Air 01/17/19 15:54 97 Room Air 01/17/19 15:30 Room Air 01/17/19 15:00 97.7 105 14 163/95 (117) 94 Room Air 97.7 01/17/19 13:30 83 24 147/83 (104) 97 Room Air 01/17/19 12:30 82 22 139/84 (102) 98 Room Air 01/17/19 11:30 88 22 141/82 (101) 98 Room Air 01/17/19 10:30 78 18 165/88 (113) 98 Room Air I & O Intake and Output 01/18/19 07:00 Intake Total 150 ml Balance 150 ml Intake Oral 150 ml # Voids 4 PHYSICAL EXAM Physical Exam Physical Exam: General appearance: Alert and Oriented Head: Normocephalic, without obvious abnormality Eyes: conjunctivae/corneas clear. PERRL, EOM's intact. Fundi benign Lungs: Regular respirations, non labored breathing Abdomen: soft, non-tender, morbidly obese.. No masses, no organomegaly Pelvic: deferred ASSESSMENT/PLAN Assessment/Plan 4 mm non obstructing stone CMP ordered for today to follow environmental projects advisor trend. Air Brake Adjuster ordered for this am. KUB today to check stone progress. Pt afebrile. UPDATE 1140: Air Brake Adjuster improved down to 1.2 from 1.4. KUB shows Right-sided renal calculus is identified measuring 8 mm. Distal left ureteral calculus is not visualized on this examination likely secondary to body habitus. Pt is asymptomatic at this time and has noted a lot of "dust passage" in urine. No immediate surgical intervention recommended, continue supportive care. Will follow and re-evaluate tomorrow. COMMENT Lab Laboratory Tests Test 01/17/19 10:00 01/17/19 10:20 Urine Collection Type Void Urine Color Yellow Urine Clarity Clear Urine pH 6.0 Urine Specific [place] 1.025 Urine Protein Negative mg/dL (NEG-TRACE) Urine Glucose (UA) Negative mg/dL (NEG) Urine Ketones (Stick) Negative mg/dL (NEG) Urine Blood Large (NEG) Urine Nitrite Negative (NEG) Urine Bilirubin Negative (NEG) Urine Urobilinogen Dipstick 0.2 mg/dL (0.2 mg/dL) Urine Leukocyte Esterase Negative (NEG) Urine RBC Tntc /HPF (0-2) Urine WBC 1-4 /HPF (0-4) Urine Squamous Epithelial Cells Mod /LPF Urine Bacteria Few /HPF (0-FEW) Urine Mucus Marked /LPF White Blood Count 12.8 x10^3/uL (4.0-11.0) Red Blood Count 5.40 x10^6/uL (4.30-5.70) Hemoglobin 14.0 g/dL (13.0-17.5) Hematocrit 43.9 % (39.0-53.0) Mean Corpuscular Volume 81 fL (79-100) Mean Corpuscular Hemoglobin 26 pg (25-35) Mean Corpuscular Hemoglobin Concent 32 g/dL (31-37) Red Cell Distribution Width 16.1 % (11.5-14.5) Platelet Count 298 x10^3/uL (140-400) Neutrophils (%) (Auto) 80 % (31-73) Lymphocytes (%) (Auto) 10 % (24-48) Monocytes (%) (Auto) 7 % (0-9) Eosinophils (%) (Auto) 3 % (0-3) Basophils (%) (Auto) 1 % (0-3) Neutrophils # (Auto) 10.2 x10^3uL (1.8-7.7) Lymphocytes # (Auto) 1.3 x10^3/uL (1.0-4.8) Monocytes # (Auto) 0.9 x10^3/uL (0.0-1.1) Eosinophils # (Auto) 0.3 x10^3/uL (0.0-0.7) Basophils # (Auto) 0.1 x10^3/uL (0.0-0.2) Sodium Level 139 mmol/L (136-145) Potassium Level 3.4 mmol/L (3.5-5.1) Chloride Level 99 mmol/L (98-107) Carbon Dioxide Level 28 mmol/L (21-32) Anion Gap 12 (6-14) Blood Urea Nitrogen 15 mg/dL (8-26) Creatinine 1.4 mg/dL (0.7-1.3) Estimated GFR (Cockcroft-Gault) 54.6 BUN/Creatinine Ratio 11 (6-20) Glucose Level 129 mg/dL (70-99) Calcium Level 9.1 mg/dL (8.5-10.1) Total Bilirubin 0.8 mg/dL (0.2-1.0) Aspartate Amino Transf (AST/SGOT) 20 U/L (15-37) Alanine Aminotransferase (ALT/SGPT) 23 U/L (16-63) Alkaline Phosphatase 85 U/L (46-116) Total Protein 7.6 g/dL (6.4-8.2) Albumin 3.6 g/dL (3.4-5.0) Albumin/Globulin Ratio 0.9 (1.0-1.7) Amylase Level 23 U/L (25-115) Lipase 93 U/L (73-393) BRYANT MORAN APRN Jan 18, 2019 09:54
--- NOTE | 2019-01-18 10:17 | RAD ---
Abdominal radiograph 01/18/2019 INDICATION: Left-sided kidney stone. COMPARISON: CT abdomen/pelvis January 17, 2019 TECHNIQUE: 3 views of the abdomen are provided. FINDINGS: There is suggestion of a 8 mm calculus in the inferior pole the right kidney which corresponds with CT findings. No left-sided renal calculi are identified by radiographs. Distal left ureteral calculus is not definitively visualized on this examination due to body habitus. There are no dilated loops of small or large bowel. No suspicious osseous amount. IMPRESSION: Right-sided renal calculus is identified measuring 8 mm. Distal left ureteral calculus is not visualized on this examination likely secondary to body habitus. Electronically signed by: Almita Jolley MD (01/18/2019 10:13 AM) [id number]
--- NOTE | 2019-01-18 10:18 | HP ---
ADMIT DATE: 01/18/2019 HISTORY OF PRESENT ILLNESS: This 48-year-old male started having acute left flank pain. This started on Friday evening about 5:00 or 6:00 p.m. Prior to that, the patient has had occasional left-sided flank pain that resolved spontaneously, but on Friday, the pain was quite severe and finally came to [facility] on Friday morning. The patient was noted to have a WBC count of 12.8, hemoglobin 14. Sodium 139, potassium 3.4, BUN 15, creatinine 1.4. Acute abdominal series showed cholelithiasis and no bowel obstruction. A CT scan of abdomen and pelvis showed a distal left ureteral obstructive calculus with associated hydronephrosis. It also showed cholelithiasis. Because of the acute renal colic with left ureteral stone that is obstructing, the patient was admitted for further evaluation and management. REVIEW OF SYSTEMS: At present time, the patient's pain is much better. He denies any nausea, vomiting, diarrhea or hematuria. He denies any right-sided abdominal pain or flank pain. Denies any dyspepsia, fever or chills. He denies any dysuria. Other systems reviewed and are negative. PAST MEDICAL HISTORY: The patient was last admitted here in 10/2017. He was treated with IV Zosyn and vancomycin at that time for a right knee wound. He has a history of hyperlipidemia, morbid obesity with weight of 551 pounds, obstructive sleep apnea, noncompliant with CPAP, history of right bursitis and surgeries. PAST SURGICAL HISTORY: Includes right knee I and D and subsequent wound that required antibiotics and a lot of wound care. FAMILY HISTORY: Positive for diabetes, hyperlipidemia, hypertension. SOCIAL HISTORY: The patient lives with mother. No history of alcoholism, smoking or drug abuse. MEDICATIONS: Reviewed and reconciled. The patient is on hydrocodone at home for pain. ALLERGIES: THE PATIENT IS ALLERGIC TO TOMATO AND ARTIFICIAL SWEETENERS THAT INCLUDES ASPARTAME, SACCHARIN, SUCRALOSE. PHYSICAL EXAMINATION: VITAL SIGNS: Temperature 98.3, pulse 108 per minute, respirations 20 per minute, blood pressure is 152/82 mmHg today. GENERAL: The patient is alert, oriented, not in acute distress. He is morbidly obese. EYES: Pupils reacting to light. Conjunctivae pink. Sclerae white. HENT: Unremarkable. NECK: Supple. JVP normal. No thyromegaly. Trachea midline. LUNGS: Clear. CARDIOVASCULAR SYSTEM: S1, S2 regular. ABDOMEN: Soft, obese, nontender, no guarding, no rigidity. Bowel sounds present. EXTREMITIES: No edema. CENTRAL NERVOUS SYSTEM: Alert and oriented. LABORATORY FINDINGS: WBC count is 12.8, polys 80, platelet count is 298,000. Sodium 139, potassium 3.4, BUN 15, creatinine 1.4, glucose 129, calcium 9.1. Urinalysis shows large amount of blood, nitrite negative, few bacteria. Leukocyte esterase is negative. IMAGING: CT scan of abdomen and pelvis as noted earlier. ASSESSMENT AND PLAN: 1. Acute renal colic due to left ureteral stone that is obstructive. 2. Diabetes mellitus type 2. 3. Morbid obesity. 4. Hypertension. 5. Leukocytosis, reactive. 6. Hyperlipidemia. 7. Obstructive sleep apnea. PLAN: Continue IV fluids. The patient has hypokalemia, so I will add potassium to the IV fluids. Clinically, the patient is doing much better and he is also passing some small gravel in the urine. Consultation has been obtained with Dr. Grove for Urology evaluation and management. The patient has asymptomatic cholelithiasis. The patient asked me about options of the cholelithiasis and I would continue to monitor it at this time and treat left ureteral obstructive stone with hydronephrosis. Clinically, the patient is improving. The patient is also on prednisone at home. Clinically, does not have urinary tract infection. I will go ahead and repeat labs this morning. For details, please refer to the orders. I will have the staff call me this afternoon and I have discussed this with the staff and if the patient is stable, he may be able to go home this late afternoon or evening. For details, please refer to the orders. I have reviewed and reconciled the medications, please refer to the transfer orders for discharge. The patient has hydrocodone at home. I will see him in the office in 5 days. For details regarding the discharge orders, please refer to the transfer forms. KEON SOLARES MD DR: DARRYL/olvin JOB#: [id number] / [id number]
--- NOTE | 2019-01-18 10:28 | EKG ---
[facility] [address] [place] [address] Test Date: 2019-01-17 Test Time: 11:11:27 Pat Name: KENNEY HAYWARD Department: Room: 420 1 Gender: M Produce Department Supervisor: : 1970 Requested By: ADRIANA MANUEL Order Number: [id number] Reading MD: Marbin Parra MD Measurements Intervals [place] Rate: 96 P: -137 VA: 124 QRS: 45 QRSD: 90 T: 21 QT: 362 QTc: 464 Interpretive Statements SINUS RHYTHM RBBB NON-SPECIFIC ST/T CHANGES Electronically Signed On 01-18-2019 10:55:05 CDT by Marbin Parra MD
[2019-01-18] MEDS ORDERED: POTASSIUM CHLORIDE 20 MEQ TABLET.ER. PO ONE (10:30)
--- NOTE | 2019-01-18 10:40 | NUR ---
SW following. Discussed with RN, pt is from home. RN advised no SW needs at this time. SW will continue to follow.
[2019-01-18 10:50] LABS: BASO % 1 % (0-3); EOS # 0.4 x10^3/uL (0.0-0.7); EOS % 6 % (0-3); HEMATOCRIT 42.1 % (39.0-53.0); HEMOGLOBIN 13.5 g/dL (13.0-17.5); LYMPH # 1.3 x10^3/uL (1.0-4.8); LYMPH % 20 % (24-48); MEAN CORPUSCULAR HEMOGLOBIN 26 pg (25-35); MEAN CORPUSCULAR HGB CONC 32 g/dL (31-37); MEAN CORPUSCULAR VOLUME 81 fL (79-100); MONO # 0.6 x10^3/uL (0.0-1.1); MONO % 9 % (0-9); NEUT # 4.1 x10^3uL (1.8-7.7); NEUT % 64 % (31-73); PLATELET COUNT 269 x10^3/uL (140-400); RED BLOOD COUNT 5.19 x10^6/uL (4.30-5.70); RED CELL DISTRIBUTION WIDTH 16.4 % (11.5-14.5); WHITE BLOOD COUNT 6.5 x10^3/uL (4.0-11.0)
[2019-01-18 11:00] VITALS: BP 148/75
[2019-01-18 11:30] LABS: ALBUMIN 3.1 g/dL (3.4-5.0); ALBUMIN/GLOBULIN RATIO 0.8 (1.0-1.7); CALCIUM 8.6 mg/dL (8.5-10.1); CREATININE 1.2 mg/dL (0.7-1.3); GFR 65.2; TOTAL BILIRUBIN 0.8 mg/dL (0.2-1.0); TOTAL PROTEIN 7.1 g/dL (6.4-8.2)
[2019-01-18 11:34] LABS: POTASSIUM 2.9 mmol/L (3.5-5.1)
[2019-01-18] MEDS: POTASSIUM CHLORIDE 20 MEQ TABLET.ER. PO SCH ×3 (11:51→20:13)
[2019-01-18 15:00] VITALS: BP 160/86
[2019-01-18] MEDS: MULTIVITAMIN with MINERAL TABLET. PO SCH (16:26)
[2019-01-18 19:00] VITALS: BP 125/81
[2019-01-18 23:00] VITALS: BP 124/63
--- NOTE | 2019-01-19 00:03 | NUR ---
Patient called and said he was bleeding. Patient stated that he ran into the edge of the bed and tore the skin on the right lower leg. RN cleaned the area, photographed it, and put a telfa island on the site. RN will continue to monitor.
--- NOTE | 2019-01-19 00:39 | NUR ---
RT spoke to the RN about the patients home BIPAP settings. Home settings are 28/20 and RT said that those are not suitable for the hospital setting, RT adjusted settings to 20/80. Patient told RT that the previous night on the 28 home setting he felt like he wasn't getting any air and had a hard time sleeping. RN will continue to monitor.
[2019-01-19 03:00] VITALS: BP 143/86
[2019-01-19 07:00] VITALS: BP 158/92
[2019-01-19] MEDS: BUDESONIDE 0.5 MG/2 ML NEBU. NEB SCH (07:47)
[2019-01-19] MEDS: ALBUTEROL SULFATE 2.5 MG/3 ML NEBU. NEB SCH (07:47)
[2019-01-19 08:46] LABS: BASO # 0.1 x10^3/uL (0.0-0.2); BASO % 1 % (0-3); EOS # 0.5 x10^3/uL (0.0-0.7); EOS % 7 % (0-3); HEMATOCRIT 41.3 % (39.0-53.0); HEMOGLOBIN 13.2 g/dL (13.0-17.5); LYMPH # 1.5 x10^3/uL (1.0-4.8); LYMPH % 23 % (24-48); MEAN CORPUSCULAR HEMOGLOBIN 26 pg (25-35); MEAN CORPUSCULAR HGB CONC 32 g/dL (31-37); MEAN CORPUSCULAR VOLUME 82 fL (79-100); MONO # 0.5 x10^3/uL (0.0-1.1); MONO % 8 % (0-9); NEUT % 61 % (31-73); PLATELET COUNT 263 x10^3/uL (140-400); RED BLOOD COUNT 5.02 x10^6/uL (4.30-5.70); RED CELL DISTRIBUTION WIDTH 16.3 % (11.5-14.5); WHITE BLOOD COUNT 6.6 x10^3/uL (4.0-11.0)
[2019-01-19 08:59] LABS: CALCIUM 8.6 mg/dL (8.5-10.1); GFR 80.4; POTASSIUM 3.7 mmol/L (3.5-5.1)
[2019-01-19 09:18] VITALS: BP 158/92
[2019-01-19] MEDS: LOSARTAN POTASSIUM 25 MG TABLET. PO SCH (09:18)
[2019-01-19] MEDS: predniSONE 10 MG TABLET PO SCH (09:18)
[2019-01-19] MEDS: TAMSULOSIN 0.4 MG CAP.ER.24H. PO SCH (09:18)
[2019-01-19] MEDS: ASPIRIN CHEWABLE 81 MG TABLET. PO SCH (09:19)
[2019-01-19] MEDS: ATORVASTATIN CALCIUM 40 MG TABLET. PO SCH (09:19)
[2019-01-19] MEDS: oxyCODONE/APAP 10/325 1 TAB TABLET PO PRN (09:19)
--- NOTE | 2019-01-19 10:05 | PDOC ---
SUBJECTIVE Subjective Pt doing great this am. continues to have no pain. Has seen several gigi particles coming out in the strainer. Would like to go home later if possible. OBJECTIVE Objective Physical Exam: General appearance: Alert and Oriented Head: Normocephalic, without obvious abnormality Eyes: conjunctivae/corneas clear. PERRL, EOM's intact. Fundi benign Lungs: Regular respirations, non labored breathing Abdomen: soft, non-tender, morbidly obese.. No masses, no organomegaly Pelvic: deferred Vital Signs Vital Signs Date Time Temp Pulse Resp B/P (MAP) Pulse Ox O2 Delivery O2 Flow Rate FiO2 01/19/19 09:19 Room Air 01/19/19 09:18 97 158/92 01/19/19 09:18 97 158/92 01/19/19 08:04 Room Air 01/19/19 07:50 97 Room Air 01/19/19 07:47 97 Room Air 01/19/19 07:00 98.5 97 20 158/92 (114) 92 Room Air 98.5 01/19/19 03:00 97.9 88 18 143/86 (105) 95 BiPAP/CPAP 97.9 01/18/19 23:00 97.5 103 18 124/63 (83) 95 Room Air 97.5 01/18/19 20:15 Room Air 01/18/19 19:59 92 Room Air 01/18/19 19:00 97.8 86 18 125/81 (96) 95 Room Air 97.8 01/18/19 17:30 Room Air 01/18/19 16:26 Room Air 01/18/19 16:00 92 Room Air 01/18/19 15:00 99.2 91 20 160/86 (110) 91 Room Air 99.2 01/18/19 11:49 100 Room Air 01/18/19 11:00 98.3 96 20 148/75 (99) 94 Room Air 98.3 01/18/19 10:10 96 BiPAP/CPAP I & O Intake and Output 01/19/19 06:59 Intake Total 810 ml Balance 810 ml Intake Oral 810 ml # Voids 5 PHYSICAL EXAM Physical Exam Physical Exam: General appearance: Alert and Oriented Head: Normocephalic, without obvious abnormality Eyes: conjunctivae/corneas clear. PERRL, EOM's intact. Fundi benign Lungs: Regular respirations, non labored breathing Abdomen: soft, non-tender, morbidly obese.. No masses, no organomegaly Pelvic: deferred ASSESSMENT/PLAN Assessment/Plan Patient remains pain free and stone continues to come out in fragments. SUPERVISOR URANIUM PROCESSING down to 1.0 A follow up appointment has been secured for patient on 02/09/19 at [address] Grove of [facility]. Appointment card and new patient paperwork given to patient. All questions answered. Ok to discharge, from a Urology perspective, whenever medical team is ready. COMMENT Lab Laboratory Tests Test 01/18/19 17:10 01/19/19 07:40 Potassium Level 3.7 mmol/L (3.5-5.1) 3.7 mmol/L (3.5-5.1) White Blood Count 6.6 x10^3/uL (4.0-11.0) Red Blood Count 5.02 x10^6/uL (4.30-5.70) Hemoglobin 13.2 g/dL (13.0-17.5) Hematocrit 41.3 % (39.0-53.0) Mean Corpuscular Volume 82 fL (79-100) Mean Corpuscular Hemoglobin 26 pg (25-35) Mean Corpuscular Hemoglobin Concent 32 g/dL (31-37) Red Cell Distribution Width 16.3 % (11.5-14.5) Platelet Count 263 x10^3/uL (140-400) Neutrophils (%) (Auto) 61 % (31-73) Lymphocytes (%) (Auto) 23 % (24-48) Monocytes (%) (Auto) 8 % (0-9) Eosinophils (%) (Auto) 7 % (0-3) Basophils (%) (Auto) 1 % (0-3) Neutrophils # (Auto) 4.0 x10^3uL (1.8-7.7) Lymphocytes # (Auto) 1.5 x10^3/uL (1.0-4.8) Monocytes # (Auto) 0.5 x10^3/uL (0.0-1.1) Eosinophils # (Auto) 0.5 x10^3/uL (0.0-0.7) Basophils # (Auto) 0.1 x10^3/uL (0.0-0.2) Sodium Level 142 mmol/L (136-145) Chloride Level 104 mmol/L (98-107) Carbon Dioxide Level 29 mmol/L (21-32) Anion Gap 9 (6-14) Blood Urea Nitrogen 11 mg/dL (8-26) Creatinine 1.0 mg/dL (0.7-1.3) Estimated GFR (Cockcroft-Gault) 80.4 Glucose Level 91 mg/dL (70-99) Calcium Level 8.6 mg/dL (8.5-10.1) BRYANT MORAN APRN Jan 19, 2019 10:05
--- NOTE | 2019-01-19 10:15 | PDOC3 ---
IM DISCHARGE SUMMARY Date of Admission Date of Admission Date of Admission: Jan 17, 2019 at 13:15 Date of Discharge Date of Discharge January 19, 2019 Primary Diagnosis Primary Diagnosis 1. Acute renal colic due to left ureteral stone that is obstructive. 2. Diabetes mellitus type 2. 3. Morbid obesity. 4. Hypertension. 5. Leukocytosis, reactive. 6. Hyperlipidemia. 7. Obstructive sleep apnea. 8. Hypokalemia Consults Consults Beni Shin MD Labs Labs Laboratory Tests Test 01/17/19 10:00 01/17/19 10:20 01/18/19 09:38 01/18/19 17:10 Urine Collection Type Void Urine Color Yellow Urine Clarity Clear Urine pH 6.0 Urine Specific [place] 1.025 Urine Protein Negative mg/dL (NEG-TRACE) Urine Glucose (UA) Negative mg/dL (NEG) Urine Ketones (Stick) Negative mg/dL (NEG) Urine Blood Large (NEG) Urine Nitrite Negative (NEG) Urine Bilirubin Negative (NEG) Urine Urobilinogen Dipstick 0.2 mg/dL (0.2 mg/dL) Urine Leukocyte Esterase Negative (NEG) Urine RBC Tntc /HPF (0-2) Urine WBC 1-4 /HPF (0-4) Urine Squamous Epithelial Cells Mod /LPF Urine Bacteria Few /HPF (0-FEW) Urine Mucus Marked /LPF White Blood Count 12.8 x10^3/uL (4.0-11.0) 6.5 x10^3/uL (4.0-11.0) Red Blood Count 5.40 x10^6/uL (4.30-5.70) 5.19 x10^6/uL (4.30-5.70) Hemoglobin 14.0 g/dL (13.0-17.5) 13.5 g/dL (13.0-17.5) Hematocrit 43.9 % (39.0-53.0) 42.1 % (39.0-53.0) Mean Corpuscular Volume 81 fL (79-100) 81 fL (79-100) Mean Corpuscular Hemoglobin 26 pg (25-35) 26 pg (25-35) Mean Corpuscular Hemoglobin Concent 32 g/dL (31-37) 32 g/dL (31-37) Red Cell Distribution Width 16.1 % (11.5-14.5) 16.4 % (11.5-14.5) Platelet Count 298 x10^3/uL (140-400) 269 x10^3/uL (140-400) Neutrophils (%) (Auto) 80 % (31-73) 64 % (31-73) Lymphocytes (%) (Auto) 10 % (24-48) 20 % (24-48) Monocytes (%) (Auto) 7 % (0-9) 9 % (0-9) Eosinophils (%) (Auto) 3 % (0-3) 6 % (0-3) Basophils (%) (Auto) 1 % (0-3) 1 % (0-3) Neutrophils # (Auto) 10.2 x10^3uL (1.8-7.7) 4.1 x10^3uL (1.8-7.7) Lymphocytes # (Auto) 1.3 x10^3/uL (1.0-4.8) 1.3 x10^3/uL (1.0-4.8) Monocytes # (Auto) 0.9 x10^3/uL (0.0-1.1) 0.6 x10^3/uL (0.0-1.1) Eosinophils # (Auto) 0.3 x10^3/uL (0.0-0.7) 0.4 x10^3/uL (0.0-0.7) Basophils # (Auto) 0.1 x10^3/uL (0.0-0.2) 0.0 x10^3/uL (0.0-0.2) Sodium Level 139 mmol/L (136-145) 140 mmol/L (136-145) Potassium Level 3.4 mmol/L (3.5-5.1) 2.9 mmol/L (3.5-5.1) 3.7 mmol/L (3.5-5.1) Chloride Level 99 mmol/L (98-107) 101 mmol/L (98-107) Carbon Dioxide Level 28 mmol/L (21-32) 30 mmol/L (21-32) Anion Gap 12 (6-14) 9 (6-14) Blood Urea Nitrogen 15 mg/dL (8-26) 14 mg/dL (8-26) Creatinine 1.4 mg/dL (0.7-1.3) 1.2 mg/dL (0.7-1.3) Estimated GFR (Cockcroft-Gault) 54.6 65.2 BUN/Creatinine Ratio 11 (6-20) 12 (6-20) Glucose Level 129 mg/dL (70-99) 98 mg/dL (70-99) Calcium Level 9.1 mg/dL (8.5-10.1) 8.6 mg/dL (8.5-10.1) Total Bilirubin 0.8 mg/dL (0.2-1.0) 0.8 mg/dL (0.2-1.0) Aspartate Amino Transf (AST/SGOT) 20 U/L (15-37) 19 U/L (15-37) Alanine Aminotransferase (ALT/SGPT) 23 U/L (16-63) 18 U/L (16-63) Alkaline Phosphatase 85 U/L (46-116) 74 U/L (46-116) Total Protein 7.6 g/dL (6.4-8.2) 7.1 g/dL (6.4-8.2) Albumin 3.6 g/dL (3.4-5.0) 3.1 g/dL (3.4-5.0) Albumin/Globulin Ratio 0.9 (1.0-1.7) 0.8 (1.0-1.7) Amylase Level 23 U/L (25-115) Lipase 93 U/L (73-393) Test 01/19/19 07:40 White Blood Count 6.6 x10^3/uL (4.0-11.0) Red Blood Count 5.02 x10^6/uL (4.30-5.70) Hemoglobin 13.2 g/dL (13.0-17.5) Hematocrit 41.3 % (39.0-53.0) Mean Corpuscular Volume 82 fL (79-100) Mean Corpuscular Hemoglobin 26 pg (25-35) Mean Corpuscular Hemoglobin Concent 32 g/dL (31-37) Red Cell Distribution Width 16.3 % (11.5-14.5) Platelet Count 263 x10^3/uL (140-400) Neutrophils (%) (Auto) 61 % (31-73) Lymphocytes (%) (Auto) 23 % (24-48) Monocytes (%) (Auto) 8 % (0-9) Eosinophils (%) (Auto) 7 % (0-3) Basophils (%) (Auto) 1 % (0-3) Neutrophils # (Auto) 4.0 x10^3uL (1.8-7.7) Lymphocytes # (Auto) 1.5 x10^3/uL (1.0-4.8) Monocytes # (Auto) 0.5 x10^3/uL (0.0-1.1) Eosinophils # (Auto) 0.5 x10^3/uL (0.0-0.7) Basophils # (Auto) 0.1 x10^3/uL (0.0-0.2) Sodium Level 142 mmol/L (136-145) Potassium Level 3.7 mmol/L (3.5-5.1) Chloride Level 104 mmol/L (98-107) Carbon Dioxide Level 29 mmol/L (21-32) Anion Gap 9 (6-14) Blood Urea Nitrogen 11 mg/dL (8-26) Creatinine 1.0 mg/dL (0.7-1.3) Estimated GFR (Cockcroft-Gault) 80.4 Glucose Level 91 mg/dL (70-99) Calcium Level 8.6 mg/dL (8.5-10.1) Brief hospital course Brief hospital course This 48-year-old male started having acute left flank pain. This started on Friday evening about 5:00 or 6:00 p.m. Prior to that, the patient has had occasional left-sided flank pain that resolved spontaneously, but on Friday, the pain was quite severe and [facility]. The patient was noted to have a WBC count of 12.8, hemoglobin 14. Sodium 139, potassium 3.4, BUN 15, creatinine 1.4. Acute abdominal series showed cholelithiasis and no bowel obstruction. A CT scan of abdomen and pelvis showed a distal left ureteral obstructive calculus with associated hydronephrosis. It also showed cholelithiasis. Because of the acute renal colic with left ureteral stone that is obstructing, the patient was admitted for further evaluation and management. For more details regarding the past history, family history, social history, surgical history and other details, please refer to History and Physical. Continue IV fluids. The patient has hypokalemia, so I will add potassium to the IV fluids. Clinically, the patient is doing much better and he is also passing some small gravel in the urine. Consultation has been obtained with Dr. Grove for Urology evaluation and management. The patient has asymptomatic cholelithiasis. The patient asked me about options of the cholelithiasis and I would continue to monitor it at this time and treat left ureteral obstructive stone with hydronephrosis. Clinically, the patient is improving. The patient is also on prednisone at home. Clinically, does not have urinary tract infection. I will go ahead and repeat labs this morning. For details, please refer to the orders. I will have the staff call me this afternoon and I have discussed this with the staff and if the patient is stable, he may be able to go home this late afternoon or evening. For details, please refer to the orders. I have reviewed and reconciled the medications, please refer to the transfer orders for discharge. The patient has hydrocodone at home. I will see him in the office in 5 days. For details regarding the discharge orders, please refer to the transfer forms. Hypokalemia is better with potassium supplements and I'll continue potassium chloride 20 mg twice a day with food at home. I'll see him in the office on Friday that is in 4 days and will recheck labs at that time. He can restart oral Lasix tomorrow. He is already starting to have fluid retention. He has nephrolithiasis with stones in both kidneys. Patient is passing small gravel's and is asymptomatic. Urologist has cleared the patient to go home. Okay to discharge home. Medications Medications reviewed and reconciled for discharge. Allergy Allergies Coded Allergies Type Severity Reaction Last Updated Verified aspartame Allergy Intermediate 02/03/18 Yes saccharin Allergy Intermediate 02/03/18 Yes sucralose Allergy Intermediate 02/03/18 Yes tomato Allergy Intermediate SNEEZING 02/03/18 Yes Follow up in 4 days. DISPOSITION: Home Comments Discharge Management - 35 minutes. For other details please refer to discharge instructions KEON SOLARES MD Jan 19, 2019 10:15
--- NOTE | 2019-01-19 12:11 | NUR ---
pt is discharged home with self care at 1211 via ambulation via natasha iyer. pt is in stable condition. pt has all belongings with him. pt received discharge instructions and prescriptions and stated he had no further questions for me.
== END 2019-01-19 12:11 | disposition home or self-care (01) | DRG 694 ==
LOC: ER 09:16 → 4 NORTH 13:15
PROVIDERS: ADMIT Internal Medicine; ATTEND Internal Medicine
PROC: 5A09357 Assistance with Respiratory Ventilation, Less than 24 Consecutive Hours, Continuous Positive Airway Pressure (ICD-10-PCS; principal; 2019-01-17)
PROC: 5A09357 Assistance with Respiratory Ventilation, Less than 24 Consecutive Hours, Continuous Positive Airway Pressure (ICD-10-PCS; 2019-01-18)
PROC: 5A09357 Assistance with Respiratory Ventilation, Less than 24 Consecutive Hours, Continuous Positive Airway Pressure (ICD-10-PCS; 2019-01-19)
DX: N13.2 Hydronephrosis with renal and ureteral calculous obstruction (principal); Z68.45 Body mass index [BMI] 70 or greater, adult; K80.20 Calculus of gallbladder without cholecystitis without obstruction; E11.9 Type 2 diabetes mellitus without complications; I10 Essential (primary) hypertension; E66.01 Morbid (severe) obesity due to excess calories; Z96.659 Presence of unspecified artificial knee joint; E78.00 Pure hypercholesterolemia, unspecified; E78.5 Hyperlipidemia, unspecified; G47.33 Obstructive sleep apnea (adult) (pediatric); D72.829 Elevated white blood cell count, unspecified; E87.6 Hypokalemia; Z88.8 Allergy status to other drugs, medicaments and biological substances; Z83.3 Family history of diabetes mellitus; Z91.19 Patient's noncompliance with other medical treatment and regimen; Z82.49 Family history of ischemic heart disease and other diseases of the circulatory system
CPT/HCPCS: 36415; 74018; 74022; 74176; 80048; 80053; 81001; 82150; 83690; 84132; 85025; 93005; 94640; 94660; 94760; 96374; J2270; J2405; J3010; J7030; J7512; J7613; J7626; 99285-25

== ENCOUNTER → 2019-02-25 | Outpatient (CLI) | payer OTHER ==
[~2019-02-25] MED LIST changes: +ASPI-630 PO; +DILT240C66 PO; +LOSA25TA PO; +PRED-220 PO; +TAMS0.4C97 PO; +TIOT18CA IH
--- NOTE | 2019-02-25 12:28 | RAD ---
CT Abdomen and Pelvis without contrast History: Ureteral calculus Technique: Noncontrast CT imaging was performed of the abdomen and pelvis. Multiplanar images are reviewed. Exposure: One or more of the following individualized dose reduction techniques were utilized for this examination: 1. Automated exposure control 2. Adjustment of the mA and/or kV according to patient size 3. Use of iterative reconstruction technique. Comparison: January 17, 2019 Findings: Exam is again limited due to significant beam attenuation by soft tissues. Previously seen distal left ureteral calculus is no longer present. Previously seen left hydronephrosis has resolved. There is again inferior left renal calculus about 0.5 cm. There is inferior right renal calculus about 0.8 cm. Urinary bladder is not significantly distended. Accurate evaluation of abdominal visceral organs is limited without intravenous contrast and also due to patient's body habitus. The is again cholelithiasis including large gallstone about 2.9 cm. There is no adrenal nodularity. There is no new obvious abnormality of the spleen or pancreas. Evaluation of bowel is limited without oral contrast. There is no significant bowel dilatation, free air, free fluid. Appendix caliber is considered borderline dilated about 0.7 cm although no significant adjacent inflammatory-type change and there is some internal gas present. There is vacuum disc disease L4-5 and L5-S1. Impression: 1. Previously seen left ureteral calculus is no longer present, resolution of previously seen left hydronephrosis. There are bilateral renal calculi. 2. There is again cholelithiasis. Electronically signed by: Leandro Brambila MD (02/25/2019 12:25 PM) [id number]
== END | disposition home or self-care (01) ==
LOC: CT 11:30
PROVIDERS: ATTEND Urology
DX: K80.20 Calculus of gallbladder without cholecystitis without obstruction (principal); N20.2 Calculus of kidney with calculus of ureter
CPT/HCPCS: 74176

== ENCOUNTER → 2019-12-07 | Outpatient (CLI) | payer BC ==
[~2019-12-07] MED LIST changes: -CETI10TA22 PO; +CETI10TA24 PO; -MELA3TAB2 PO; +MELA3TAB56 PO; +METF500T11 PO; -METF500T9 PO; +MONT10TA49 PO; -MONT10TA9 PO; -TIZA4TAB PO; +TIZA4TAB2 PO
--- NOTE | 2019-12-07 17:39 | KCIC ---
KUB History: Bilateral ureteral calculi Comparison: January 18, 2019 Findings: 3 standing AP views of the abdomen are submitted. Supine imaging could not be performed due to table weight limit. There is cholelithiasis. There is right renal calculus likely larger than previously, also likely persistent left renal calculus also likely larger. Impression: 1. There are bilateral renal calculi, apparently larger than previously. 2. There is cholelithiasis. Electronically signed by: Leandro Brambila MD (12/07/2019 5:37 PM) [facility]
== END | disposition home or self-care (01) ==
LOC: KCIC 15:17
PROVIDERS: ATTEND Urology
DX: N20.0 Calculus of kidney (principal); K80.20 Calculus of gallbladder without cholecystitis without obstruction; N20.1 Calculus of ureter
CPT/HCPCS: 74018

== ENCOUNTER 2019-12-17 00:57 | Emergency (ER) | payer BC ==
[~2019-12-17] VITALS: Ht 182.9 cm; Wt 250.5 kg
[2019-12-17 01:13] LABS: BILIRUBIN,URINE NEGATIVE (NEG); CLARITY,URINE CLEAR; COLOR,URINE AMBER; NITRITE,URINE NEGATIVE (NEG); PROTEIN,URINE 30 mg/dL (NEG-TRACE); UROBILINOGEN,URINE 0.2 mg/dL (0.2 mg/dL)
[2019-12-17 01:19] LABS: BACTERIA,URINE FEW /HPF (0-FEW); RBC,URINE TNTC /HPF (0-2); SQUAMOUS EPITHELIAL CELL,UR FEW /LPF
[2019-12-17] MEDS ORDERED: ONDANSETRON PF 4 MG/2 ML VIAL. IVP ONE (02:45)
[2019-12-17] MEDS ORDERED: KETOROLAC 30 MG/ML VIAL. IVP ONE (02:45)
--- NOTE | 2019-12-17 03:40 | RAD ---
INDICATION: Abdomen pain COMPARISON: February 25, 2019 TECHNIQUE: Axial CT images obtained through the abdomen and pelvis without contrast. Limited assessment of solid organ structures and vasculature secondary to lack of intravenous contrast.. One or more of the following individualized dose reduction techniques were utilized for this examination: 1. Automated exposure control; 2. Adjustment of the mA and/or kV according to patient size; 3. Use of iterative reconstruction technique. FINDINGS: Limited evaluation secondary to a large amount of artifact from overlying soft tissues. There are some enlarged lymph nodes in the bilateral groin. Abdominal aorta is not grossly aneurysmal. Multiple gallstones including at the gallbladder neck region. No intrahepatic bile duct dilation. No peripancreatic fluid collection. Spleen unremarkable. Multiple bilateral renal stones. Right-sided hydronephrosis with right ureteral pelvic junction stone measuring up to 15 x 9 mm. Urinary bladder is partially distended. Urinary bladder partially distended. Colonic diverticulosis. There is some dilatation of portion of the colon including the transverse colon with air and stool. Measures up to about 6 cm. Degenerative changes the spine with multilevel central canal and neural foraminal stenosis IMPRESSION: * Right-sided hydronephrosis with UPJ stone. Multiple additional nonobstructive renal stones. * Air and stool-filled dilatation of a portion of the colon including the transverse colon with the colon appearing relatively decompressed more distally. * Gallstones. * Enlarged lymph nodes in the bilateral groin again seen. Electronically signed by: Amador Lowery MD (12/17/2019 3:37 AM) [id number]
--- NOTE | 2019-12-17 03:47 | PHYS DOC ---
Past Medical History Past Medical History: Bronchitis, Diabetes-Type II, Hypertension, Other Additional Past Medical Histor: MORBID OBESITY Past Surgical History: Knee Replacement Smoking Status: Never Smoker Alcohol Use: Occasionally Drug Use: None Adult General Chief Complaint Chief Complaint: FLANK PAIN HPI HPI 49-year-old male presents to the emergency Department complaints of right flank pain radiation to the front, nausea. Patient is a history of renal as well as ch olelithiasis. He was seen by his urologist yesterday. Patient is a known 8 mm stone on the right, 5 hours time left. Patient states he was doing fine the plan was to follow-up as an outpatient with allergy and a couple months to evaluate further. They've been, watching the stones as an outpatient. He's had no particular issues. He denies any dysuria or frequency, fever or chills. Nothing makes his pain worse, nothing makes his pain better. Patient states he took some Percocet today because pain was present however has had no significant relief. Therefore patient presents to the emergency department for further evaluation regarding patient's pain. Review of Systems Review of Systems Constitutional: Denies fever or chills [] Respiratory: Denies cough or shortness of breath [] Cardiovascular: No additional information not addressed in HPI [] GI: Denies abdominal pain, nausea, vomiting, bloody stools or diarrhea [] : Denies dysuria or hematuria [] Musculoskeletal: + back pain Neurologic: Denies headache, focal weakness or sensory changes [] All other systems were reviewed and found to be within normal limits, except as documented in this note. Current Medications Current Medications Current Medications Medications (Trade) Dose Ordered Sig/[facility] Start Time Stop Time Status Last Admin Dose Admin Albuterol/ Ipratropium (Duoneb) 3 ml 1X ONCE 12/17/19 04:00 12/17/19 04:01 DC 12/17/19 03:51 3 ML Ketorolac Tromethamine (Toradol 30mg Vial) 30 mg 1X ONCE 12/17/19 02:45 12/17/19 02:46 DC 12/17/19 03:21 30 MG Morphine Sulfate (Morphine Sulfate) 4 mg 1X ONCE 12/17/19 04:30 12/17/19 04:31 DC 12/17/19 04:36 4 MG Ondansetron HCl (Zofran) 4 mg 1X ONCE 12/17/19 02:45 12/17/19 02:46 DC 12/17/19 03:22 4 MG Allergies Allergies Allergies Coded Allergies Type Severity Reaction Last Updated Verified aspartame Allergy Intermediate 02/03/18 Yes saccharin Allergy Intermediate 02/03/18 Yes sucralose Allergy Intermediate 02/03/18 Yes tomato Allergy Intermediate SNEEZING 02/03/18 Yes Physical Exam Physical Exam Constitutional: Well developed, well nourished, mild distress 2/2 pain, non- toxic appearance. [] HENT: Normocephalic, atraumatic, bilateral external ears normal, oropharynx moist, no oral exudates, nose normal. [] Eyes: PERRLA, EOMI, conjunctiva normal, no discharge. [] Cardiovascular:Heart rate regular rhythm, no murmur [] Lungs & Thorax: Bilateral breath sounds clear to auscultation [] Abdomen: Bowel sounds normal, soft, no tenderness, no masses, no pulsatile masses. [] Skin: Warm, dry, no erythema, no rash. [] Back: No tenderness, mild CVA tenderness Extremities: No tenderness, no edema. [] Neurologic: Alert and oriented X 3, no focal deficits noted. [] Psychologic: Affect normal, judgement normal, mood normal. [] Current Patient Data Vital Signs Vital Signs Date Time Temp Pulse Resp B/P (MAP) Pulse Ox O2 Delivery O2 Flow Rate FiO2 12/17/19 04:36 22 91 Room Air 12/17/19 03:37 80 117/62 (80) 12/17/19 01:58 98.1 98.1 Lab Values Laboratory Tests Test 12/17/19 01:05 12/17/19 03:10 Urine Collection Type Unknown Urine Color Linette Urine Clarity Clear Urine pH 6.0 Urine Specific [place] 1.025 Urine Protein 30 mg/dL (NEG-TRACE) Urine Glucose (UA) Negative mg/dL (NEG) Urine Ketones (Stick) Negative mg/dL (NEG) Urine Blood Large (NEG) Urine Nitrite Negative (NEG) Urine Bilirubin Negative (NEG) Urine Urobilinogen Dipstick 0.2 mg/dL (0.2 mg/dL) Urine Leukocyte Esterase Trace (NEG) Urine RBC Tntc /HPF (0-2) Urine WBC 5-10 /HPF (0-4) Urine Squamous Epithelial Cells Few /LPF Urine Bacteria Few /HPF (0-FEW) Urine Mucus Mod /LPF White Blood Count 11.2 x10^3/uL (4.0-11.0) H Red Blood Count 5.22 x10^6/uL (4.30-5.70) Hemoglobin 14.3 g/dL (13.0-17.5) Hematocrit 43.3 % (39.0-53.0) Mean Corpuscular Volume 83 fL (79-100) Mean Corpuscular Hemoglobin 27 pg (25-35) Mean Corpuscular Hemoglobin Concent 33 g/dL (31-37) Red Cell Distribution Width 15.5 % (11.5-14.5) H Platelet Count 294 x10^3/uL (140-400) Neutrophils (%) (Auto) 76 % (31-73) H Lymphocytes (%) (Auto) 10 % (24-48) L Monocytes (%) (Auto) 8 % (0-9) Eosinophils (%) (Auto) 4 % (0-3) H Basophils (%) (Auto) 1 % (0-3) Neutrophils # (Auto) 8.6 x10^3/uL (1.8-7.7) H Lymphocytes # (Auto) 1.2 x10^3/uL (1.0-4.8) Monocytes # (Auto) 0.9 x10^3/uL (0.0-1.1) Eosinophils # (Auto) 0.5 x10^3/uL (0.0-0.7) Basophils # (Auto) 0.1 x10^3/uL (0.0-0.2) Sodium Level 139 mmol/L (136-145) Potassium Level 3.7 mmol/L (3.5-5.1) Chloride Level 102 mmol/L (98-107) Carbon Dioxide Level 28 mmol/L (21-32) Anion Gap 9 (6-14) Blood Urea Nitrogen 12 mg/dL (8-26) Creatinine 1.4 mg/dL (0.7-1.3) H Estimated GFR (Cockcroft-Gault) 54.3 BUN/Creatinine Ratio 9 (6-20) Glucose Level 113 mg/dL (70-99) H Calcium Level 9.0 mg/dL (8.5-10.1) Total Bilirubin 0.8 mg/dL (0.2-1.0) Aspartate Amino Transferase (AST) 21 U/L (15-37) Alanine Aminotransferase (ALT) 23 U/L (16-63) Alkaline Phosphatase 80 U/L (46-116) Total Protein 6.8 g/dL (6.4-8.2) Albumin 3.1 g/dL (3.4-5.0) L Albumin/Globulin Ratio 0.8 (1.0-1.7) L Laboratory Tests 12/17/19 03:10 Laboratory Tests 12/17/19 03:10 EKG EKG [] Radiology/Procedures Radiology/Procedures [facility] [address] [place] [address] IMAGING REPORT Signed PATIENT: KENNEY HAYWARD ACCOUNT: [id number] : 1970 LOCATION: ER AGE: 49 SEX: M EXAM STATUS: REG ER ORD. PHYSICIAN: CLARE BILLS MD REASON: stone protocol PROCEDURE: CT ABDOMEN PELVIS WO CONTRAST INDICATION: Abdomen pain COMPARISON: February 25, 2019 TECHNIQUE: Axial CT images obtained through the abdomen and pelvis without contrast. Limited assessment of solid organ structures and vasculature secondary to lack of intravenous contrast.. One or more of the following individualized dose reduction techniques were utilized for this examination: 1. Automated exposure control; 2. Adjustment of the mA and/or kV according to patient size; 3. Use of iterative reconstruction technique. FINDINGS: Limited evaluation secondary to a large amount of artifact from overlying soft tissues. There are some enlarged lymph nodes in the bilateral groin. Abdominal aorta is not grossly aneurysmal. Multiple gallstones including at the gallbladder neck region. No intrahepatic bile duct dilation. No peripancreatic fluid collection. Spleen unremarkable. Multiple bilateral renal stones. Right-sided hydronephrosis with right ureteral pelvic junction stone measuring up to 15 x 9 mm. Urinary bladder is partially distended. Urinary bladder partially distended. Colonic diverticulosis. There is some dilatation of portion of the colon including the transverse colon with air and stool. Measures up to about 6 cm. Degenerative changes the spine with multilevel central canal and neural foraminal stenosis IMPRESSION: * Right-sided hydronephrosis with UPJ stone. Multiple additional nonobstructive renal stones. * Air and stool-filled dilatation of a portion of the colon including the transverse colon with the colon appearing relatively decompressed more distally. * Gallstones. * Enlarged lymph nodes in the bilateral groin again seen. Electronically signed by: Anais Perez MD (12/17/2019 3:37 AM) [id number] DICTATED and SIGNED BY: ANAIS PEREZ MD DATE: 12/17/19 0337 [] Course & Med Decision Making Course & Med Decision Making Pertinent Labs and Imaging studies reviewed. (See chart for details) []49-year-old male presents to the emergency Department complaints of right flank pain radiation to the front, nausea. Patient is a history of renal as well as cholelithiasis. He was seen by his urologist yesterday. Patient is a known 8 mm stone on the right, 5 hours time left. Patient states he was doing fine the plan was to follow-up as an outpatient with allergy and a couple months to evaluate further. They've been, watching the stones as an outpatient. He's had no particular issues. He denies any dysuria or frequency, fever or chills. Nothing makes his pain worse, nothing makes his pain better. Patient states he took some Percocet today because pain was present however has had no significant relief. Therefore patient presents to the emergency department for further evaluation regarding patient's pain. Creat 1.4, UAD without acute infection Patient already on flomax daily - po narcotic medications at home already with inability to control CT with 15x9mm stone right UPJ Morphine, Toradol attempted for pain control without improvement Recommend transfer to [facility] Discussed transfer with DR. ARREOLA (Urology university controller) - [id number] Awaiting call back from Hospitalist ([facility]) - Ashlie Payne Disclaimer Kerry Disclaimer This electronic medical record was generated, in whole or in part, using a voice recognition dictation system. Departure Departure Impression: Primary Impression: Ureteropelvic junction (UPJ) obstruction, right Disposition: 05 TRANSFER OTHER Condition: STABLE Referrals: KEON SOLARES MD (PCP) Patient Instructions: Kidney Stones, [id number] Additional Instructions: Recommend transfer to [facility] for Urology care (DR ARREOLA) Hospitalist Accepting - CLARE DEMPSEY MD Dec 17, 2019 03:47
[2019-12-17 03:54] LABS: BASO # 0.1 x10^3/uL (0.0-0.2); BASO % 1 % (0-3); EOS # 0.5 x10^3/uL (0.0-0.7); EOS % 4 % (0-3); HEMATOCRIT 43.3 % (39.0-53.0); HEMOGLOBIN 14.3 g/dL (13.0-17.5); LYMPH # 1.2 x10^3/uL (1.0-4.8); LYMPH % 10 % (24-48); MEAN CORPUSCULAR HEMOGLOBIN 27 pg (25-35); MEAN CORPUSCULAR HGB CONC 33 g/dL (31-37); MEAN CORPUSCULAR VOLUME 83 fL (79-100); MONO # 0.9 x10^3/uL (0.0-1.1); MONO % 8 % (0-9); NEUT # 8.6 x10^3/uL (1.8-7.7); NEUT % 76 % (31-73); PLATELET COUNT 294 x10^3/uL (140-400); RED BLOOD COUNT 5.22 x10^6/uL (4.30-5.70); RED CELL DISTRIBUTION WIDTH 15.5 % (11.5-14.5); WHITE BLOOD COUNT 11.2 x10^3/uL (4.0-11.0)
[2019-12-17] MEDS ORDERED: IPRATRPIUM/ALBUTEROL 0.5/2.5MG 3 ML NEBU. NEB ONE (04:00)
[2019-12-17 04:03] LABS: CREATININE 1.4 mg/dL (0.7-1.3); GFR 54.3; POTASSIUM 3.7 mmol/L (3.5-5.1)
[2019-12-17 04:09] LABS: ALBUMIN 3.1 g/dL (3.4-5.0); ALBUMIN/GLOBULIN RATIO 0.8 (1.0-1.7); TOTAL BILIRUBIN 0.8 mg/dL (0.2-1.0); TOTAL PROTEIN 6.8 g/dL (6.4-8.2)
[2019-12-17] MEDS ORDERED: MORPHINE SULFATE 4 MG/ML VIAL. IV ONE (04:30)
[2019-12-17 04:37] VITALS: BP 109/53
== END 2019-12-17 05:40 | disposition short-term general hospital (02) ==
LOC: ER 00:57
DX: N13.1 Hydronephrosis with ureteral stricture, not elsewhere classified (principal); R11.0 Nausea; M54.9 Dorsalgia, unspecified; E11.9 Type 2 diabetes mellitus without complications; I10 Essential (primary) hypertension; E66.01 Morbid (severe) obesity due to excess calories; Z68.45 Body mass index [BMI] 70 or greater, adult; Z98.890 Other specified postprocedural states; Z91.018 Allergy to other foods; Z88.2 Allergy status to sulfonamides; Z88.8 Allergy status to other drugs, medicaments and biological substances
CPT/HCPCS: 36415; 74176; 80053; 81001; 85025; 87086; 94640; 94760; 96374; 96375; 99285; J1885; J2270; J2405; J7620

== ENCOUNTER → 2020-04-03 | Outpatient (CLI) | payer BC ==
[~2020-04-03] MED LIST changes: +MELA3TAB4 PO; -MELA3TAB56 PO; +METF-658 PO; -METF500T11 PO; +MULT-445 PO; -MULT1TAB52 PO; -OLOP2.5D EACHEYE; +OLOP2.5D12 EACHEYE
--- NOTE | 2020-04-03 16:06 | CARD ---
MR#: [id number] Date of Study: 04/03/2020 Ordering Physician: AUDREY COOPER, Referring Physician: AUDREY COOPER, Tech: Thelma Alatorre APPROVED REPORT EXAM: Two-dimensional and M-mode echocardiogram with Doppler and color Doppler. Other Information Quality : FairHR: 75bpm INDICATION Hypertension/HCVD Pre-Op RISK FACTORS Hypertension Hyperlipidemia Diabetes 2D DIMENSIONS Left Atrium(2D)4.3 (1.6-4.0cm)IVSd1.1 (0.7-1.1cm) Aortic Root(2D)3.1 (2.0-3.7cm)LVDd5.6 (3.9-5.9cm) LVOT Diameter2.2 (1.8-2.4cm)PWd1.0 (0.7-1.1cm) LVDs2.7 (2.5-4.0cm)FS (%) 51.2 % SV123.5 ml Aortic Valve AoV Peak Jeremy.143.8cm/sAoV VTI30.1cm AO Peak GR.8.3mmHgLVOT Peak Jeremy.123.7cm/s LVOT VTI 30.16cmAO Mean GR.5mmHg DALE (VMAX)2.56le1KWS (VTI)3.92cm2 Mitral Valve MV E Qkwpnmmd771.2cm/sMV DECEL DSLD211vw MV A Elqoneri77.9cm/sMV E Mean Gr.2mmHg MV YTW46qhH/A Ratio1.4 MVA (PHT)4.76cm2 TDI E/Lateral E'11.4E/Medial E'10.4 Pulmonary Valve PV Peak Zmtmbado933.1cm/sPV Peak Grad.4mmHg Tricuspid Valve TR P. Dcfbxhhl261ap/sRAP SPBGFYLA0fuCs TR Peak Gr.86dbKfQVTN27clKw Pulmonary Vein S1 Rzfveaha86.8cm/sD2 Mvlpcvjg71.0cm/s PVa spdzctat743gffz LEFT VENTRICLE The left ventricle is normal size. There is borderline concentric left ventricular hypertrophy. The l eft ventricular systolic function is normal and the ejection fraction is within normal range. The Eje ction Fraction is 50-55%. Septal motion consistent with conduction abnormality. Transmitral Doppler f low pattern is Grade II-pseudonormal filling dynamics. RIGHT VENTRICLE The right ventricle is normal size. There is normal right ventricular wall thickness. The right ventr icular systolic function is normal. ATRIA The left atrium size is normal. The right atrium size is normal. The interatrial septum is intact wit h no evidence for an atrial septal defect or patent foramen ovale as noted on 2-D or Doppler imaging. AORTIC VALVE The aortic valve is thickened but opens well. Doppler and Color Flow revealed no significant aortic r egurgitation. There is no significant aortic valvular stenosis. MITRAL VALVE The mitral valve is normal in structure and function. There is no evidence of mitral valve prolapse. There is no mitral valve stenosis. Doppler and Color-flow revealed trace mitral regurgitation. TRICUSPID VALVE The tricuspid valve is normal in structure and function. Doppler and Color Flow revealed trace tricus pid regurgitation with an estimated PAP of 32 mmHg. There is no tricuspid valve stenosis. PULMONIC VALVE The pulmonic valve is not well visualized. Doppler and Color Flow revealed no pulmonic valvular regur gitation. GREAT VESSELS The aortic root is normal in size. The IVC is normal in size and collapses >50% with inspiration. PERICARDIAL EFFUSION There is no evidence of significant pericardial effusion. Critical Notification Critical Value: No <Conclusion> The left ventricle is normal size. The left ventricular systolic function is normal and the ejection fraction is within normal range. The Ejection Fraction is 50-55%. There is borderline concentric left ventricular hypertrophy. There is no significant aortic valvular stenosis. Doppler and Color Flow revealed no significant aortic regurgitation. Doppler and Color-flow revealed trace mitral regurgitation. Doppler and Color Flow revealed trace tricuspid regurgitation with an estimated PAP of 32 mmHg. Signed by : Audrey Cooper MD Electronically Approved : 04/03/2020 16:05:40
== END | disposition home or self-care (01) ==
LOC: ECHO 14:01
PROVIDERS: ATTEND Internal Medicine Cardiovascular Disease
DX: I11.9 Hypertensive heart disease without heart failure (principal); E78.5 Hyperlipidemia, unspecified; E11.9 Type 2 diabetes mellitus without complications; I37.1 Nonrheumatic pulmonary valve insufficiency
CPT/HCPCS: 93306

== ENCOUNTER 2021-01-19 14:28 | Emergency (ER) | payer BC ==
[~2021-01-19] VITALS: Ht 182.9 cm; Wt 180.9 kg
[~2021-01-19 14:28] MED LIST changes: -CETI10TA24 PO; +CETI10TA74 PO; +LISI10TA16 PO; -LISI10TA2 PO
[2021-01-19 14:44] VITALS: BP 120/79
--- NOTE | 2021-01-19 15:14 | PHYS DOC ---
Past Medical History Past Medical History: Bronchitis, Diabetes-Type II, Hypertension, Other Additional Past Medical Histor: MORBID OBESITY Past Surgical History: Knee Replacement Additional Past Surgical Histo: GASTRIC BYPASS IN 03/2020 Smoking Status: Never Smoker Alcohol Use: Occasionally Drug Use: None General Adult EDM: Chief Complaint: FEVER HPI: HPI: Patient is a 50 year old [f__sex] who presents with [] Review of Systems: Review of Systems: Constitutional: Denies fever or chills. [] Eyes: Denies change in visual acuity. [] HENT: Denies nasal congestion or sore throat. [] Respiratory: Denies cough or shortness of breath. [] Cardiovascular: Denies chest pain or edema. [] GI: Denies abdominal pain, nausea, vomiting, bloody stools or diarrhea. [] : Denies dysuria. [] Musculoskeletal: Denies back pain or joint pain. [] Integument: Denies rash. [] Neurologic: Denies headache, focal weakness or sensory changes. [] Endocrine: Denies polyuria or polydipsia. [] Lymphatic: Denies swollen glands. [] Psychiatric: Denies depression or anxiety. [] Heart Score: Risk Factors: Risk Factors: DM, Current or recent (<one month) smoker, HTN, HLP, family history of CAD, obesity. Risk Scores: Score 0 - 3: 2.5% MACE over next 6 weeks - Discharge Home Score 4 - 6: 20.3% MACE over next 6 weeks - Admit for Clinical Observation Score 7 - 10: 72.7% MACE over next 6 weeks - Early Invasive Strategies Allergies: Allergies: Allergies Coded Allergies Type Severity Reaction Last Updated Verified aspartame Allergy Intermediate 02/03/18 Yes saccharin Allergy Intermediate 02/03/18 Yes sucralose Allergy Intermediate 02/03/18 Yes tomato Allergy Intermediate SNEEZING 02/03/18 Yes Physical Exam: PE: Constitutional: Well developed, well nourished, no acute distress, non-toxic appearance. [] HENT: Normocephalic, atraumatic, bilateral external ears normal, oropharynx moist, no oral exudates, nose normal. [] Eyes: PERRLA, EOMI, conjunctiva normal, no discharge. [] Neck: Normal range of motion, no tenderness, supple, no stridor. [] Cardiovascular:Heart rate regular rhythm, no murmur [] Lungs & Thorax: Bilateral breath sounds clear to auscultation [] Abdomen: Bowel sounds normal, soft, no tenderness, no masses, no pulsatile masses. [] Skin: Warm, dry, no erythema, no rash. [] Back: No tenderness, no CVA tenderness. [] Extremities: No tenderness, no cyanosis, no clubbing, ROM intact, no edema. [] Neurologic: Alert and oriented X 3, normal motor function, normal sensory function, no focal deficits noted. [] Psychologic: Affect normal, judgement normal, mood normal. [] Current Patient Data: Vital Signs: Vital Signs Date Time Temp Pulse Resp B/P (MAP) Pulse Ox O2 Delivery O2 Flow Rate FiO2 01/19/21 14:44 98.4 85 18 120/79 (93) 94 Room Air 98.4 EKG: EKG: [] Radiology/Procedures: Radiology/Procedures: [] Course & Med Decision Making: Course & Med Decision Making Pertinent Labs and Imaging studies reviewed. (See chart for details) [] Dragon Disclaimer: Dragon Disclaimer: This electronic medical record was generated, in whole or in part, using a voice recognition dictation system. Departure Departure Impression: Primary Impression: Vaccine reaction Qualified Codes: T50.Z95A - Adverse effect of other vaccines and biological substances, initial encounter Additional Impression: Hx of fever Disposition: 01 DC HOME SELF CARE/HOMELESS Condition: STABLE Referrals: KEON SOLARES MD (PCP) Patient Instructions: Fever, Adult, [id number] Additional Instructions: Your symptoms are likely secondary to a common reaction to your COVID-19 vaccination. Treat symptoms with over the counter Tylenol and/or Ibuprofen. NANETTE JIMENEZ DO Jan 19, 2021 15:14
== END 2021-01-19 15:23 | disposition home or self-care (01) ==
LOC: ER 14:28
DX: T50.Z95A Adverse effect of other vaccines and biological substances, initial encounter (principal); R50.9 Fever, unspecified; E11.9 Type 2 diabetes mellitus without complications; I10 Essential (primary) hypertension; E66.01 Morbid (severe) obesity due to excess calories; Z68.43 Body mass index [BMI] 50.0-59.9, adult; Z95.1 Presence of aortocoronary bypass graft; Z88.8 Allergy status to other drugs, medicaments and biological substances; Z91.018 Allergy to other foods; Y92.89 Other specified places as the place of occurrence of the external cause
CPT/HCPCS: 99282